=== PATIENT | male | born 1980 | race Caucasian/White ===

== ENCOUNTER 2018-03-27 14:42 | Emergency (ER) | payer BC ==
[2018-03-27] MEDS ORDERED: MORPHINE SULFATE 4 MG/ML SYRINGE IVP PRN ×2 (15:02→17:20)
--- NOTE | 2018-03-27 15:09 | ED ---
General Adult HPI - General Chief complaint: Back Pain/Injury Stated complaint: Urogenital Source: patient Mode of arrival: ambulatory Limitations: no limitations - History of Present Illness Initial comments: Dictation was produced using OmPrompt dictation software. please excuse any grammatical, word or spelling errors. Chief Complaint: 29-year-old male with past medical history of hypertension, bipolar disease presents with testicular pain and back pain. History of Present Illness: Patient is a 37-year-old male presents with testicular pain and back pain. Patient states he initially had back pain that started 2 days ago. He was at work when he was lifting a drum when he came immediately felt pain to his lower back. He saw occupational health told him he had sciatica. He was hydrated and discharged. Patient was without insurance however he just regained it. He attempted to follow-up with his primary care physician however his PCP does not take patient's insurance. Since yesterday patient has been having some testicular pain as well. He states he feels as though his pain is towards his left posterior testicle. Patient is sexually active. Denies any urinary symptoms. No history of kidney stones. Patient is still passing gas however he has not had a bowel movement in 2-3 days. The ROS documented in this emergency department record has been reviewed and confirmed by me. Those systems with pertinent positive or negative responses have been documented in the HPI. All other systems are other negative and/or noncontributory. - Related Data Previous Rx's Medication Instructions Recorded Hydrocodone/Acetaminophen [[place] 1 tab PO Q6HR PRN 3 Days #12 tab 03/27/18 5-325] [place] Carbonate [[place] 600 mg PO DAILY #30 tablet.er 03/27/18 Carbonate ER] Polyethylene Glycol 3350 [Miralax] 17 gm PO DAILY 3 Days #3 packet 03/27/18 Allergies Allergy/AdvReac Type Severity Reaction Status Date / Time No Known Allergies Allergy Verified 03/27/18 14:47 Review of Systems ROS Statement: Those systems with pertinent positive or pertinent negative responses have been documented in the HPI. ROS Other: All systems not noted in ROS Statement are negative. Past Medical History Past Medical History: Hypertension History of Any Multi-Drug Resistant Organisms: None Reported Past Surgical History: No Surgical Hx Reported Past Psychological History: Bipolar, PTSD Smoking Status: Current every day smoker Past Alcohol Use History: None Reported Past Drug Use History: None Reported General Exam - General Exam Comments Initial Comments: PHYSICAL EXAM: General Impression: Alert and oriented x3, not in acute distress HEENT: Normocephalic atraumatic, extra-ocular movements intact, pupils equal and reactive to light bilaterally, mucous membranes moist. Cardiovascular: Heart regular rate and rhythm, S1&S2 audible, no murmurs, rubs or gallops Chest: Lungs clear to auscultation bilaterally, no rhonchi, no wheeze, no rales Abdomen: Bowel sounds present, abdomen soft, non-tender, non-distended, no organomegaly Musculoskeletal: Pulses present and equal in all extremities, no peripheral edema Motor: Power 5/5 bilaterally, no focal deficits noted Neurological: CN II-XII grossly intact, no focal motor or sensory deficits noted Skin: Intact with no visualized rashes Psych: Normal affect and mood : Pain in the left testicle, no inguinal hernias palpated with Valsalva Limitations: no limitations Course Vital Signs 03/27/18 03/27/18 03/27/18 14:44 15:31 16:28 Temperature 98.8 F 98.7 F Pulse Rate 91 83 83 Respiratory 18 18 18 Rate Blood Pressure 146/88 124/79 119/93 O2 Sat by Pulse 99 97 97 Oximetry 03/27/18 17:56 Temperature 98.1 F Pulse Rate 78 Respiratory 18 Rate Blood Pressure 123/76 O2 Sat by Pulse 97 Oximetry Medical Decision Making - Medical Decision Making ED course: 79-year-old male presents with chief complaint of back pain and left testicular pain. Vital signs upon arrival are within acceptable limits. At this point I doubt that his back pain and testicular pain are related given that his pain started with lifting an object. Believe his back pain is secondary to sciatica. Patient does have tenderness to his left testicle. He does not have urinary symptoms however is sexually active. No palpable inguinal hernias. Patient is not obstipated and still passing gas however has not had a bowel movement. Laboratory evaluation obtained. CBC unremarkable, metabolic panel is unremarkable. Urinalysis is negative. Ultrasound of the scrotum showed small varicocele of the left testicle. Abdominal x-ray showed nonobstructive bowel gas pattern. Computed tomography scan of the abdomen and pelvis was obtained given that patient lack of bowel movements. There was concern of some hernia or alternate cause of varicocele. CT showed findings to suggest fecal stasis. Patient does not have a PCP. He requests refill for his lithium. Patient given some pain medication. He is also given some MiraLAX to take it. Patient told to avoid narcotics because it may worsen his constipation. Patient told to follow up with urologist for varicocele. Patient understandable agreeable to plan. - Lab Data Result diagrams: 03/27/18 15:18 03/27/18 15:18 Lab Results 03/27/18 03/27/18 03/27/18 Range/Units 15:18 15:18 16:46 WBC 9.5 (3.8-10.6) k/uL RBC 4.68 (4.30-5.90) m/uL Hgb 14.7 (13.0-17.5) gm/dL Hct 43.4 (39.0-53.0) % MCV 92.8 (80.0-100.0) fL MCH 31.3 (25.0-35.0) pg MCHC 33.7 (31.0-37.0) g/dL RDW 13.3 (11.5-15.5) % Plt Count 227 (150-450) k/uL Neutrophils % 61 % Lymphocytes % 30 % Monocytes % 5 % Eosinophils % 2 % Basophils % 0 % Neutrophils # 5.9 (1.3-7.7) k/uL Lymphocytes # 2.8 (1.0-4.8) k/uL Monocytes # 0.5 (0-1.0) k/uL Eosinophils # 0.2 (0-0.7) k/uL Basophils # 0.0 (0-0.2) k/uL Sodium 140 (137-145) mmol/L Potassium 4.2 (3.5-5.1) mmol/L Chloride 105 (98-107) mmol/L Carbon Dioxide 27 (22-30) mmol/L Anion Gap 8 mmol/L BUN 11 (9-20) mg/dL Creatinine 0.76 (0.66-1.25) mg/dL Est GFR (CKD-EPI)AfAm >90 (>60 ml/min/1.73 sqM) Est GFR (CKD-EPI)NonAf >90 (>60 ml/min/1.73 sqM) Glucose 105 H (74-99) mg/dL Calcium 9.0 (8.4-10.2) mg/dL Total Bilirubin 0.6 (0.2-1.3) mg/dL AST 20 (17-59) U/L ALT 18 L (21-72) U/L Alkaline Phosphatase 58 (38-126) U/L Total Protein 7.3 (6.3-8.2) g/dL Albumin 4.3 (3.5-5.0) g/dL Lipase 65 (23-300) U/L Urine Color Yellow Urine Appearance Clear (Clear) Urine pH 6.0 (5.0-8.0) Ur Specific [place] 1.024 (1.001-1.035) Urine Protein Trace H (Negative) Urine Glucose (UA) Negative (Negative) Urine Ketones Trace H (Negative) Urine Blood Negative (Negative) Urine Nitrite Negative (Negative) Urine Bilirubin Negative (Negative) Urine Urobilinogen <2.0 (<2.0) mg/dL Ur Leukocyte Esterase Negative (Negative) Disposition Clinical Impression: Constipation Disposition: HOME SELF-CARE Instructions: Constipation (ED) Prescriptions: Hydrocodone/Acetaminophen [[place] 5-325] 1 tab PO Q6HR PRN 3 Days #12 tab PRN Reason: Pain [place] Carbonate [[place] Carbonate ER] 600 mg PO DAILY #30 tablet.er Polyethylene Glycol 3350 [Miralax] 17 gm PO DAILY 3 Days #3 packet Is patient prescribed a controlled substance at d/c from ED?: Yes If prescribed controlled substance>3 days was MAPS reviewed?: Prescribed <3 Days Referrals: Joyce Stephen MD [REFERRING] - 1-2 days None,Stated [Primary Care Provider] - 1-2 days Jorge Alberto Schrader MD [STAFF PHYSICIAN] - 1-2 days Time of Disposition: 18:39
[2018-03-27 15:31] LABS: Basophils % (A) 0 %; Eosinophils # (A) 0.2 k/uL (0-0.7); Eosinophils % (A) 2 %; HCT 43.4 % (39.0-53.0); HGB 14.7 gm/dL (13.0-17.5); Lymphocytes # (A) 2.8 k/uL (1.0-4.8); Lymphocytes % (A) 30 %; MCH 31.3 pg (25.0-35.0); MCHC 33.7 g/dL (31.0-37.0); MCV 92.8 fL (80.0-100.0); Mean Platelet Volume 6.8; Monocytes # (A) 0.5 k/uL (0-1.0); Monocytes % (A) 5 %; Neutrophils # (A) 5.9 k/uL (1.3-7.7); Neutrophils % (A) 61 %; Platelet Count 227 k/uL (150-450); RBC 4.68 m/uL (4.30-5.90); RDW 13.3 % (11.5-15.5); WBC 9.5 k/uL (3.8-10.6)
[2018-03-27 15:46] LABS: ALT 18 U/L (21-72); AST 20 U/L (17-59); Albumin 4.3 g/dL (3.5-5.0); Alkaline Phosphatase 58 U/L (38-126); Anion Gap 8 mmol/L; Blood Urea Nitrogen 11 mg/dL (9-20); Carbon Dioxide 27 mmol/L (22-30); Chloride 105 mmol/L (98-107); Glucose 105 mg/dL (74-99); Lipase 65 U/L (23-300); Potassium 4.2 mmol/L (3.5-5.1); Sodium 140 mmol/L (137-145); Total Bilirubin 0.6 mg/dL (0.2-1.3); Total Protein 7.3 g/dL (6.3-8.2)
--- NOTE | 2018-03-27 16:32 | US ---
EXAMINATION TYPE: US scrotum with doppler. Grayscale and color Doppler Duplex imaging performed of meggan gaston scrotum. DATE OF EXAM: 03/27/2018 COMPARISON: NONE CLINICAL HISTORY: Pain. Pain behind left testicle EXAM MEASUREMENTS: TESTICLES: Right Testicle: 3.8 x 2.1 x 3.1 cm Left Testicle: 3.9 x 1.9 x 3.2 cm EPIDIDYMIS HEAD: Right Epididymis: 0.9 x 0.7 cm Left Epididymis: 1.0 x 0.8 cm Doppler performed to assess for testicular vascularity; bilateral color flow and waveforms are seen. Presence of hydroceles: none appreciated Presence of varicoceles: Some dilation of serpiginous structures noted in the right peritesticular l ocation as compared to left. No definite abnormality noted. Testicular echotexture is homogenous and symmetric IMPRESSION: Small varicocele suspected.
--- NOTE | 2018-03-27 16:34 | XR ---
Abdomen HISTORY: Pain Frontal view of the abdomen on 2 images Lung bases are clear. There is no evident bowel obstruction or pneumoperitoneum. Slight spinal curvat ure is noted. Bone mineralization is remarkable for some sclerosis and possible lucency within the fe moral heads. No pathologic ossification. IMPRESSION: Nonobstructive bowel gas pattern. Question osteonecrosis of the hips.
[2018-03-27 17:06] LABS: Appearance,Urine Clear (Clear); Bilirubin,Urine Negative (Negative); Blood,Urine Negative (Negative); Color,Urine Yellow; Glucose,Urine (UA) Negative (Negative); Ketones,Urine Trace (Negative); Leukocyte Esterase,Urine Negative (Negative); Nitrite,Urine Negative (Negative); Protein,Urine Trace (Negative); Specific Gravity,Urine 1.024 (1.001-1.035); Urobilinogen,Urine <2.0 mg/dL (<2.0)
--- NOTE | 2018-03-27 18:25 | CT ---
EXAMINATION TYPE: CT abdomen pelvis w con DATE OF EXAM: 03/27/2018 COMPARISON: Abdomen same date HISTORY: Left testicular pain. CT DLP: 1233.8 mGycm Automated exposure control for dose reduction was used. TECHNIQUE: Helical acquisition of images from the lung bases through the pelvis have been completed. CONTRAST: Performed without Oral Contrast and with IV Contrast, patient injected with 100 mL of Isovue 300. FINDINGS: Small umbilical hernia contains fat. LUNG BASES: No significant abnormality is appreciated. AORTA: No significant abnormality is appreciated. LIVER/GB: Liver shows low attenuation and is enlarged, correlate for fecal stasis, gallbladder is nor mal. PANCREAS: No significant abnormality is seen. SPLEEN: No significant abnormality is seen. ADRENALS: No significant abnormality is seen. KIDNEYS: No significant abnormality is seen. REPRODUCTIVE ORGANS: There is a calcification seen within the prostate BOWEL: No significant abnormality is seen. Appendix is normal. There is retained fecal debris throug hout the distribution of the colon. FREE AIR: No Free Air visible. ASCITES: None visible. PELVIC ADENOPATHY: None visualized. RETROPERITONEAL ADENOPATHY: No Retroperitoneal Adenopathy visible. URINARY BLADDER: No significant abnormality is seen. OSSEOUS STRUCTURES: No significant abnormality is seen. IMPRESSION: CORRELATE FOR FECAL STASIS. Additional findings above.
[2018-03-27 18:54] VITALS: BP 111/75; PULSE 75; RESP 16; TEMP 98.3
== END 2018-03-27 18:54 | disposition home or self-care (01) ==
LOC: EC 14:42
DX: K59.00 Constipation, unspecified (principal); I86.1 Scrotal varices; F17.200 Nicotine dependence, unspecified, uncomplicated
CPT/HCPCS: 99284; 96374; 96376; 36415; 80053; 83690; 85025; 81003; 74018; 93975; 76870; 74177; J2270; Q9967

== ENCOUNTER 2019-04-14 08:08 | Emergency (ER) | payer BC ==
[2019-04-14] MEDS ORDERED: SODIUM CHLORIDE 0.9% 1,000 ML IV STA ×2 (08:16)
[2019-04-14] MEDS ORDERED: LORazepam 2 MG/ML INJ IV STA (08:30)
--- NOTE | 2019-04-14 08:44 | ED ---
General Adult HPI - General Chief complaint: Chest Pain Stated complaint: Chest pain, Anxiety Time Seen by Provider: 04/14/19 08:15 Source: patient, RN notes reviewed, old records reviewed Mode of arrival: ambulatory Limitations: no limitations - History of Present Illness Initial comments: 38 year old male presents with onset of anxiety while driving today, and complains of chest pain. He called is significant other whom picked him up and drove to ED. He reports that he suffers from anxiety and takes buspar. He was preiviously on ativan. Patient reports that he started to have anxiety which then lead to chest tightness and complained of shortness of breath. Denies previous cardiac history. - Related Data Home Medications Medication Instructions Recorded Confirmed Gabapentin 800 mg PO TID 04/14/19 04/14/19 buPROPion XL [Wellbutrin Xl] 300 mg PO DAILY 04/14/19 04/14/19 Previous Rx's Medication Instructions Recorded LORazepam [Ativan] 0.5 mg PO BID 3 Days #6 tab 04/14/19 Allergies Allergy/AdvReac Type Severity Reaction Status Date / Time No Known Allergies Allergy Verified 11/24/18 14:30 Review of Systems ROS Statement: Those systems with pertinent positive or pertinent negative responses have been documented in the HPI. ROS Other: All systems not noted in ROS Statement are negative. Past Medical History Past Medical History: Hypertension History of Any Multi-Drug Resistant Organisms: None Reported Past Surgical History: No Surgical Hx Reported Past Psychological History: Bipolar, PTSD Smoking Status: Former smoker Past Alcohol Use History: None Reported Past Drug Use History: Marijuana General Exam - General Exam Comments Initial Comments: Anxious and shaking 38 year old male, Limitations: no limitations General appearance: alert, in no apparent distress Head exam: Present: atraumatic, normocephalic, normal inspection Eye exam: Present: normal appearance, PERRL, EOMI. Absent: scleral icterus, conjunctival injection, periorbital swelling ENT exam: Present: normal exam, mucous membranes moist Neck exam: Present: normal inspection. Absent: tenderness, meningismus, lymphadenopathy Respiratory exam: Present: normal lung sounds bilaterally. Absent: respiratory distress, wheezes, rales, rhonchi, stridor Cardiovascular Exam: Present: regular rate, normal rhythm, normal heart sounds. Absent: systolic murmur, diastolic murmur, rubs, gallop, clicks GI/Abdominal exam: Present: soft, normal bowel sounds. Absent: distended, tenderness, guarding, rebound, rigid Back exam: Present: normal inspection Neurological exam: Present: alert, oriented X3, CN II-XII intact Psychiatric exam: Present: normal mood, anxious. Absent: normal affect Skin exam: Present: warm Course Vital Signs 04/14/19 04/14/19 08:08 11:36 Temperature 98.5 F 98.7 F Pulse Rate 98 74 Respiratory 19 18 Rate Blood Pressure 179/94 133/94 O2 Sat by Pulse 96 95 Oximetry Medical Decision Making - Medical Decision Making 38 year old male presents with anxiety induced chest pain. Given IV fluids,ativan and labs obtained. On reevaluation he denies chest pain, and is re sting in bed. He reports that ativan helped with his anxiety. Patient labs incluidng troponin and ddimer are negative EKG is normal. Discussed treatment for anxiety should be followed up with PCP and psychiatry. Will DC with short Rx of ativan. - Lab Data Result diagrams: 04/14/19 09:08 04/14/19 09:08 Lab Results 04/14/19 04/14/19 04/14/19 Range/Units 09:08 09:08 09:08 WBC 6.1 (3.8-10.6) k/uL RBC 4.35 (4.30-5.90) m/uL Hgb 13.9 (13.0-17.5) gm/dL Hct 39.9 (39.0-53.0) % MCV 91.7 (80.0-100.0) fL MCH 31.9 (25.0-35.0) pg MCHC 34.8 (31.0-37.0) g/dL RDW 12.7 (11.5-15.5) % Plt Count 246 (150-450) k/uL Neutrophils % 70 % Lymphocytes % 23 % Monocytes % 5 % Eosinophils % 1 % Basophils % 0 % Neutrophils # 4.2 (1.3-7.7) k/uL Lymphocytes # 1.4 (1.0-4.8) k/uL Monocytes # 0.3 (0-1.0) k/uL Eosinophils # 0.0 (0-0.7) k/uL Basophils # 0.0 (0-0.2) k/uL PT 9.9 (9.0-12.0) sec INR 0.9 (<1.2) APTT 24.6 (22.0-30.0) sec D-Dimer <0.17 (<0.60) mg/L FEU Sodium 140 (137-145) mmol/L Potassium 4.5 (3.5-5.1) mmol/L Chloride 103 (98-107) mmol/L Carbon Dioxide 28 (22-30) mmol/L Anion Gap 9 mmol/L BUN 14 (9-20) mg/dL Creatinine 0.74 (0.66-1.25) mg/dL Est GFR (CKD-EPI)AfAm >90 (>60 ml/min/1.73 sqM) Est GFR (CKD-EPI)NonAf >90 (>60 ml/min/1.73 sqM) Glucose 132 H (74-99) mg/dL Calcium 8.7 (8.4-10.2) mg/dL Magnesium 1.7 (1.6-2.3) mg/dL Total Bilirubin 0.4 (0.2-1.3) mg/dL AST 20 (17-59) U/L ALT 19 L (21-72) U/L Alkaline Phosphatase 63 (38-126) U/L Troponin I (0.000-0.034) ng/mL Total Protein 7.1 (6.3-8.2) g/dL Albumin 4.3 (3.5-5.0) g/dL Amylase 51 (30-110) U/L Lipase 61 (23-300) U/L 04/14/19 Range/Units 09:08 WBC (3.8-10.6) k/uL RBC (4.30-5.90) m/uL Hgb (13.0-17.5) gm/dL Hct (39.0-53.0) % MCV (80.0-100.0) fL MCH (25.0-35.0) pg MCHC (31.0-37.0) g/dL RDW (11.5-15.5) % Plt Count (150-450) k/uL Neutrophils % % Lymphocytes % % Monocytes % % Eosinophils % % Basophils % % Neutrophils # (1.3-7.7) k/uL Lymphocytes # (1.0-4.8) k/uL Monocytes # (0-1.0) k/uL Eosinophils # (0-0.7) k/uL Basophils # (0-0.2) k/uL PT (9.0-12.0) sec INR (<1.2) APTT (22.0-30.0) sec D-Dimer (<0.60) mg/L FEU Sodium (137-145) mmol/L Potassium (3.5-5.1) mmol/L Chloride (98-107) mmol/L Carbon Dioxide (22-30) mmol/L Anion Gap mmol/L BUN (9-20) mg/dL Creatinine (0.66-1.25) mg/dL Est GFR (CKD-EPI)AfAm (>60 ml/min/1.73 sqM) Est GFR (CKD-EPI)NonAf (>60 ml/min/1.73 sqM) Glucose (74-99) mg/dL Calcium (8.4-10.2) mg/dL Magnesium (1.6-2.3) mg/dL Total Bilirubin (0.2-1.3) mg/dL AST (17-59) U/L ALT (21-72) U/L Alkaline Phosphatase (38-126) U/L Troponin I <0.012 (0.000-0.034) ng/mL Total Protein (6.3-8.2) g/dL Albumin (3.5-5.0) g/dL Amylase (30-110) U/L Lipase (23-300) U/L 04/14/19 08:44 EKG shows sinus rhythm, nonspecific intraventricular conduction delay. Prolonged QT. Abnormal EKG noted. Ventricular rate of 89 bpm. Verbal is undertaken. She yazidism 118 ms. QT QTc is 402/489 ms. - Radiology Data Radiology results: report reviewed CXR is negative for acute process. Disposition Clinical Impression: Anxiety, Atypical chest pain Disposition: HOME SELF-CARE Condition: Good Instructions (If sedation given, give patient instructions): Chest Pain (ED) Additional Instructions: Please use medication as discussed. Please follow up with family doctor if symptoms have not improved over the next two days. Also recommended following up with ophthalmology. Please return to the emergency room if your symptoms increase or worsen or for any other concerns. Prescriptions: LORazepam [Ativan] 0.5 mg PO BID 3 Days #6 tab Is patient prescribed a controlled substance at d/c from ED?: No Referrals: Chavo Morales MD [Primary Care Provider] - 1-2 days Time of Disposition: 11:16
--- NOTE | 2019-04-14 09:28 | XR ---
EXAMINATION TYPE: XR chest 2V DATE OF EXAM: 04/14/2019 COMPARISON: None HISTORY: 38-year-old male with chest pain and shortness of breath TECHNIQUE: AP and lateral views FINDINGS: The cardiomediastinal silhouette, aorta, and pulmonary vasculature are within normal limits. Lungs an d pleural spaces are clear. IMPRESSION: No acute cardiopulmonary process.
[2019-04-14 09:39] LABS: Basophils % (A) 0 %; Eosinophils % (A) 1 %; HCT 39.9 % (39.0-53.0); HGB 13.9 gm/dL (13.0-17.5); Lymphocytes # (A) 1.4 k/uL (1.0-4.8); Lymphocytes % (A) 23 %; MCH 31.9 pg (25.0-35.0); MCHC 34.8 g/dL (31.0-37.0); MCV 91.7 fL (80.0-100.0); Mean Platelet Volume 5.9; Monocytes # (A) 0.3 k/uL (0-1.0); Monocytes % (A) 5 %; Neutrophils # (A) 4.2 k/uL (1.3-7.7); Neutrophils % (A) 70 %; Platelet Count 246 k/uL (150-450); RBC 4.35 m/uL (4.30-5.90); RDW 12.7 % (11.5-15.5); WBC 6.1 k/uL (3.8-10.6)
[2019-04-14 09:47] LABS: ALT 19 U/L (21-72); AST 20 U/L (17-59); African American GFR (CKD) >90 (>60 ml/min/1.73 sqM); Albumin 4.3 g/dL (3.5-5.0); Alkaline Phosphatase 63 U/L (38-126); Amylase 51 U/L (30-110); Anion Gap 9 mmol/L; Blood Urea Nitrogen 14 mg/dL (9-20); Calcium 8.7 mg/dL (8.4-10.2); Carbon Dioxide 28 mmol/L (22-30); Chloride 103 mmol/L (98-107); Glucose 132 mg/dL (74-99); Magnesium 1.7 mg/dL (1.6-2.3); Non-African American GFR(CKD) >90 (>60 ml/min/1.73 sqM); Potassium 4.5 mmol/L (3.5-5.1); Sodium 140 mmol/L (137-145); Total Bilirubin 0.4 mg/dL (0.2-1.3); Total Protein 7.1 g/dL (6.3-8.2)
[2019-04-14 09:54] LABS: INR 0.9 (<1.2); Partial Thromboplastin Time 24.6 sec (22.0-30.0); Prothrombin Time 9.9 sec (9.0-12.0)
[2019-04-14 10:10] LABS: D-Dimer <0.17 mg/L FEU (<0.60)
[2019-04-14 11:38] VITALS: BP 133/94; PULSE 74; RESP 18; TEMP 98.7
== END 2019-04-14 11:36 | disposition home or self-care (01) ==
LOC: EC 08:08
DX: F41.9 Anxiety disorder, unspecified (principal); F31.9 Bipolar disorder, unspecified; Z87.891 Personal history of nicotine dependence; Z79.899 Other long term (current) drug therapy
CPT/HCPCS: 36415; 93005; 85379; 80053; 82150; 83690; 83735; 84484; 85025; 85610; 85730; 71046; 99285; 96374; 96361 ×2; J2060

== ENCOUNTER 2019-09-24 23:13 | Inpatient (IN) | payer BC ==
[2019-09-24] MEDS ORDERED: LORazepam 2 MG/ML INJ IV STA (23:34)
[2019-09-24] MEDS ORDERED: SODIUM CHLORIDE 0.9% 500 ML 500 ML IV STA (23:34)
[2019-09-24] MEDS ORDERED: LORazepam 2 MG/ML INJ IV PRN ×2 (23:35)
[2019-09-24] MEDS ORDERED: THIAMINE 100 MG/ML 2 ML VIAL IM STA (23:35)
--- NOTE | 2019-09-24 23:39 | ED ---
General Adult HPI - General Chief complaint: Psychiatric Symptoms Stated complaint: Petition Time Seen by Provider: 09/24/19 23:26 Source: patient, police Mode of arrival: ambulatory Limitations: no limitations - History of Present Illness Initial comments: This patient is a 38-year-old man who presents with the complaint that he believes she is starting to go into alcohol withdrawal. The patient states that he has previously had this requiring "being put into a coma." Patient states she has had severe withdrawal including seizures previously when he stopped drinking. The patient had been alcohol free for approximately 2 years until starting about 3 weeks ago he began drinking every day because she was isolated home and also had significant stress as his partner left him and took his children. The patient states she has been drinking probably 8 of the 22 ounce beers per day as well as a bottle of wine. Patient denies drug use. -: hour(s) Improves with: none Worsens with: none Associated Symptoms: denies other symptoms Treatments Prior to Arrival: none - Related Data Home Medications Medication Instructions Recorded Confirmed Gabapentin 800 mg PO TID 04/14/19 04/14/19 buPROPion XL [Wellbutrin Xl] 300 mg PO DAILY 04/14/19 04/14/19 Previous Rx's Medication Instructions Recorded LORazepam [Ativan] 0.5 mg PO BID 3 Days #6 tab 04/14/19 Allergies Allergy/AdvReac Type Severity Reaction Status Date / Time No Known Allergies Allergy Verified 11/24/18 14:30 Review of Systems ROS Statement: Those systems with pertinent positive or pertinent negative responses have been documented in the HPI. ROS Other: All systems not noted in ROS Statement are negative. Constitutional: Denies: fever, weakness Respiratory: Denies: cough, dyspnea Cardiovascular: Denies: chest pain, palpitations Gastrointestinal: Denies: abdominal pain, vomiting, diarrhea Musculoskeletal: Denies: back pain Skin: Denies: rash Neurological: Denies: headache, weakness Psychiatric: Reports: anxiety, depression, suicidal thoughts. Denies: auditory hallucinations, visual hallucinations, homicidal thoughts Past Medical History Past Medical History: Hypertension History of Any Multi-Drug Resistant Organisms: None Reported Past Surgical History: No Surgical Hx Reported Past Psychological History: Bipolar, PTSD Smoking Status: Current some day smoker Past Alcohol Use History: Heavy Past Drug Use History: Marijuana General Exam Limitations: no limitations General appearance: alert, anxious Head exam: Present: atraumatic, normocephalic Eye exam: Present: normal appearance, PERRL, EOMI. Absent: scleral icterus, conjunctival injection ENT exam: Present: normal oropharynx Neck exam: Present: full ROM Respiratory exam: Present: normal lung sounds bilaterally. Absent: respiratory distress, wheezes, rales, rhonchi, stridor Cardiovascular Exam: Present: normal rhythm, tachycardia, normal heart sounds. Absent: systolic murmur, diastolic murmur, rubs, gallop GI/Abdominal exam: Present: soft. Absent: distended, tenderness, guarding, rebound, rigid, mass Extremities exam: Present: normal inspection, normal capillary refill. Absent: pedal edema, calf tenderness Back exam: Present: normal inspection. Absent: CVA tenderness (R), CVA tenderness (L) Neurological exam: Present: alert Psychiatric exam: Present: depressed, agitated, suicidal ideation. Absent: normal affect, normal mood, flat affect, homicidal ideation Skin exam: Present: warm, dry, intact, normal color. Absent: rash Course Vital Signs 09/24/19 23:17 Temperature 98.9 F Pulse Rate 113 H Respiratory 18 Rate Blood Pressure 169/84 O2 Sat by Pulse 97 Oximetry Disposition Referrals: Chavo Morales MD [Primary Care Provider] - 1-2 days
[2019-09-25 00:03] LABS: Amphetamine Screen,Urine Not Detected (NotDetected); Barbiturate Screen,Urine Not Detected (NotDetected); Benzodiazepines Screen,Urine Detected (NotDetected); Cocaine Screen,Urine Not Detected (NotDetected); Methadone Screen, Urine Not Detected (NotDetected); Opiate Screen,Urine Not Detected (NotDetected); Oxycodone Screen, Urine Not Detected (NotDetected); Phencyclidine Screen,Urine Not Detected (NotDetected); Tricyclic Antidepressant,Urine Not Detected (NotDetected); Urn Cannabinoid Scrn Detected (NotDetected)
[2019-09-25] MEDS ORDERED: LORazepam 2 MG/ML INJ IV STA (00:23)
[2019-09-25] MEDS ORDERED: ONDANSETRON 4 MG/2 ML VIAL IVP STA ×3 (00:23→09:08)
[2019-09-25 01:32] LABS: Basophils % (A) 0 %; Eosinophils # (A) 0.1 k/uL (0-0.7); Eosinophils % (A) 1 %; HGB 14.5 gm/dL (13.0-17.5); Lymphocytes # (A) 3.8 k/uL (1.0-4.8); Lymphocytes % (A) 40 %; MCH 32.4 pg (25.0-35.0); MCHC 33.7 g/dL (31.0-37.0); Mean Platelet Volume 6.8; Monocytes # (A) 0.4 k/uL (0-1.0); Monocytes % (A) 5 %; Neutrophils # (A) 4.9 k/uL (1.3-7.7); Neutrophils % (A) 52 %; Platelet Count 255 k/uL (150-450); RBC 4.48 m/uL (4.30-5.90); RDW 14.4 % (11.5-15.5); WBC 9.5 k/uL (3.8-10.6)
[2019-09-25 01:37] LABS: ALT 17 U/L (4-49); AST 32 U/L (17-59); African American GFR (CKD) >90 (>60 ml/min/1.73 sqM); Albumin 4.5 g/dL (3.5-5.0); Alkaline Phosphatase 80 U/L (38-126); Anion Gap 8 mmol/L; Blood Urea Nitrogen 9 mg/dL (9-20); Calcium 8.5 mg/dL (8.4-10.2); Carbon Dioxide 29 mmol/L (22-30); Chloride 104 mmol/L (98-107); Glucose 101 mg/dL (74-99); Non-African American GFR(CKD) >90 (>60 ml/min/1.73 sqM); Potassium 4.7 mmol/L (3.5-5.1); Sodium 141 mmol/L (137-145); Total Bilirubin 0.5 mg/dL (0.2-1.3); Total Protein 7.3 g/dL (6.3-8.2)
[2019-09-25 01:53] LABS: Alcohol 235 mg/dL
[2019-09-25] MEDS: THIAMINE 100 MG TAB PO SCH ×2 (09:11→15:07)
[2019-09-25] MEDS: LORazepam 2 MG/ML INJ IV PRN ×3 (09:14→11:26)
[2019-09-25] MEDS ORDERED: SODIUM CHLORIDE 0.9% 500 ML 500 ML IV STA (09:25)
[2019-09-25] MEDS ORDERED: MAG HYDROX/AL HYDROX/SIMETH 30 ML CUP PO PRN (11:08)
[2019-09-25] MEDS ORDERED: MAGNESIUM HYDROXIDE 2,400 MG/10 ML CUP PO PRN (11:08)
[2019-09-25] MEDS ORDERED: ZIPRASIDONE 20 MG VIAL IM PRN (11:08)
[2019-09-25] MEDS ORDERED: LORazepam 1 MG TAB PO PRN (11:08)
[2019-09-25] MEDS: NICOTINE 14MG/24HR PATCH TRANSDERM SCH (13:01)
[2019-09-25] MEDS: LORazepam 1 MG TAB PO PRN ×3 (15:07→22:09)
[2019-09-25] MEDS: ACETAMINOPHEN TAB 325 MG TAB PO PRN ×2 (15:07→19:02)
--- NOTE | 2019-09-25 18:30 | P.HP ---
Psychiatric H&P - . H&P Date: 09/25/19 History & Physical: Allergies Allergy/AdvReac Type Severity Reaction Status Date / Time No Known Allergies Allergy Verified 09/25/19 12:29 Vital Signs Temp 99.5 F 09/25/19 14:59 Pulse 101 H 09/25/19 14:59 Resp 18 09/25/19 14:59 BP 138/91 09/25/19 14:59 Pulse Ox 97 09/25/19 14:59 Intake & Output 09/24/19 09/25/19 09/25/19 18:59 06:59 18:59 Weight 90.718 kg 90.718 kg Laboratory Last Values WBC 9.5 k/uL (3.8-10.6) 09/25/19 00:58 RBC 4.48 m/uL (4.30-5.90) 09/25/19 00:58 Hgb 14.5 gm/dL (13.0-17.5) 09/25/19 00:58 Hct 43.0 % (39.0-53.0) 09/25/19 00:58 MCV 96.0 fL (80.0-100.0) 09/25/19 00:58 MCH 32.4 pg (25.0-35.0) 09/25/19 00:58 MCHC 33.7 g/dL (31.0-37.0) 09/25/19 00:58 RDW 14.4 % (11.5-15.5) 09/25/19 00:58 Plt Count 255 k/uL (150-450) 09/25/19 00:58 Neutrophils % 52 % 09/25/19 00:58 Lymphocytes % 40 % 09/25/19 00:58 Monocytes % 5 % 09/25/19 00:58 Eosinophils % 1 % 09/25/19 00:58 Basophils % 0 % 09/25/19 00:58 Neutrophils # 4.9 k/uL (1.3-7.7) 09/25/19 00:58 Lymphocytes # 3.8 k/uL (1.0-4.8) 09/25/19 00:58 Monocytes # 0.4 k/uL (0-1.0) 09/25/19 00:58 Eosinophils # 0.1 k/uL (0-0.7) 09/25/19 00:58 Basophils # 0.0 k/uL (0-0.2) 09/25/19 00:58 Sodium 141 mmol/L (137-145) 09/25/19 00:58 Potassium 4.7 mmol/L (3.5-5.1) 09/25/19 00:58 Chloride 104 mmol/L (98-107) 09/25/19 00:58 Carbon Dioxide 29 mmol/L (22-30) 09/25/19 00:58 Anion Gap 8 mmol/L 09/25/19 00:58 BUN 9 mg/dL (9-20) 09/25/19 00:58 Creatinine 0.70 mg/dL (0.66-1.25) 09/25/19 00:58 Est GFR (CKD-EPI)AfAm >90 (>60 ml/min/1.73 sqM) 09/25/19 00:58 Est GFR (CKD-EPI)NonAf >90 (>60 ml/min/1.73 sqM) 09/25/19 00:58 Glucose 101 mg/dL (74-99) H 09/25/19 00:58 Calcium 8.5 mg/dL (8.4-10.2) 09/25/19 00:58 Magnesium 2.0 mg/dL (1.6-2.3) 09/25/19 00:58 Total Bilirubin 0.5 mg/dL (0.2-1.3) 09/25/19 00:58 AST 32 U/L (17-59) 09/25/19 00:58 ALT 17 U/L (4-49) 09/25/19 00:58 Alkaline Phosphatase 80 U/L (38-126) 09/25/19 00:58 Total Protein 7.3 g/dL (6.3-8.2) 09/25/19 00:58 Albumin 4.5 g/dL (3.5-5.0) 09/25/19 00:58 Urine Opiates Screen Not Detected (NotDetected) 09/24/19 23:46 Ur Oxycodone Screen Not Detected (NotDetected) 09/24/19 23:46 Urine Methadone Screen Not Detected (NotDetected) 09/24/19 23:46 Ur Propoxyphene Screen Not Detected (NotDetected) 09/24/19 23:46 Ur Barbiturates Screen Not Detected (NotDetected) 09/24/19 23:46 U Tricyclic Antidepress Not Detected (NotDetected) 09/24/19 23:46 Ur Phencyclidine Scrn Not Detected (NotDetected) 09/24/19 23:46 Ur Amphetamines Screen Not Detected (NotDetected) 09/24/19 23:46 U Methamphetamines Scrn Not Detected (NotDetected) 09/24/19 23:46 U Benzodiazepines Scrn Detected (NotDetected) H 09/24/19 23:46 Urine Cocaine Screen Not Detected (NotDetected) 09/24/19 23:46 U Marijuana (THC) Screen Detected (NotDetected) H 09/24/19 23:46 Serum Alcohol 235 mg/dL H* 09/25/19 00:58 Coronavirus (PCR) Not Detected (Not Detectd) 09/25/19 16:27 09/25/19 18:20 IDENTIFYING DATA: 38-year-old single male patient HPI: Patient admitted to the inpatient psychiatric unit on an involuntary basis. Petition was done by deputy stating "stated he is depressed over and kids leaving him. States he has been drinking 3 weeks straight. Called [facility] asking for help, stated to Anita that he had a gun and was going to kill himself." Patient reports that his significant other left 3 weeks ago taking the kids and the dogs and went to [place]. He states that the Xanax he was taking wasn't holding his anxiety. He states that he wasn't feeling depression until the virus situation hit. He had been 2 years without depression. His anxiety level also increased with the virus situation and he started having panic attacks. He says he started having thoughts of killing himself related to having drank for so long. He says he has been drinking daily recently, prior he had 2 years sobriety. He says he called and talked to his mom and then he called the hospital and the professor of vegetable science came to him. Says he was talking about using a gun to hurt himself. PAST PSYCHIATRIC HISTORY: He has had history of benefit from lithium in the past. He says he had difficulties getting it refilled anywhere. He did not have lithium toxicity and did not come verbalize any kidney difficulties with the lithium he says his level was always on the low side. He does of a history of some recurrent depression, relays that he becomes manic off of gabapentin and it was started as a mood stabilizer for him. He's been on 800 mg 3 times a day. No history of abusing the gabapentin. He does also give a history of being on Wellbutrin XL 3 or milligrams daily lately as well as Lexapro 20 more grams daily and he did very well on those medications. He also was taking Xanax 4 flor es a day recently. he denies any history of suicide attempts. PMH: No history of seizures, no history of withdrawal seizures. ALLERGIES: No known ALLERGIES MEDICATIONS: I'll when necessary, Maalox when necessary, Ativan when necessary, milk of magnesia when necessary, Habitrol patch, vitamin B1, Geodon when necessary, CHEMICAL DEPENDENCY HISTORY: Patient reports he's been drinking alcohol every da y for the last month. Prior he had 2 years sobriety. Prior to that. Heavy drinking. He does not have any current desire to go back to rehab. He's been to rehab twice. FAMILY PSYCHIATRIC HISTORY: None voiced FAMILY CHEMICAL DEPENDENCY HISTORY: None currently known SOCIAL HISTORY: Currently is living by himself. His girlfriend that "they have been together for 2-1/2 years. He has not had any contact with her. He works for [employer]. He has still been working but is on furlough for about a month. MENTAL STATUS EXAM: He presents as alert and cooperative with the interview. His speech is fluent, not rapid or pressured. Thought processes are organized. He denies any current thoughts of harm to self or others. His describes his mood as anxious. He denies any current hallucinations. He does not show any current agitation. Cognitively appears to be grossly intact. I do not note any significant disorientation or memory disturbance. Insight is adequate, judgment shows evidence of recent impairment. STRENGTHS/WEAKNESSES: Strengths-Seeking treatment; weaknesses -coping skills, substance use INTELLECTUAL FUNCTIONING: Average IMPRESSIONS: Bipolar disorder, depressed; alcohol use disorder; alcohol withdrawal; unspecified anxiety disorder PLAN: Patient is admitted to the inpatient psychiatric unit and [facility] on an involuntary basis. He is agreeable to sign a voluntary form. He will be placed on SP 15 minute precautions. We'll continue to monitor regarding suicidal ideations. Baseline laboratory workup will be done the patient and medical consultation will be ordered. We'll reinitiate Lexapro 20 more grams daily for depression, gabapentin 800 mg 3 times a day which has been helpful for him in terms of mood stabilization as well as anxiety. We'll also add melatonin 3 mg at bedtime to help with insomnia. He is on Ativan currently every 4 hours when necessary to help withdrawal symptoms. We'll continue to monitor for symptoms of withdrawal and monitor his vital signs. We will look into any support systems. Estimated length of stay is 5-7 days. Prognosis is guarded.
[2019-09-25] MEDS ORDERED: MELATONIN 3 MG TABLET PO SCH (21:00)
[2019-09-25] MEDS: GABAPENTIN 400 MG CAP PO SCH (21:49)
[2019-09-26] MEDS: LORazepam 1 MG TAB PO PRN ×3 (01:47→08:54)
[2019-09-26] MEDS: ACETAMINOPHEN TAB 325 MG TAB PO PRN (06:02)
[2019-09-26 06:53] LABS: Basophils % (A) 1 %; Eosinophils # (A) 0.1 k/uL (0-0.7); Eosinophils % (A) 1 %; HCT 43.6 % (39.0-53.0); HGB 14.4 gm/dL (13.0-17.5); Lymphocytes # (A) 2.5 k/uL (1.0-4.8); Lymphocytes % (A) 30 %; MCH 32.2 pg (25.0-35.0); MCHC 33.1 g/dL (31.0-37.0); MCV 97.2 fL (80.0-100.0); Mean Platelet Volume 6.6; Monocytes # (A) 0.4 k/uL (0-1.0); Monocytes % (A) 5 %; Neutrophils % (A) 61 %; Platelet Count 230 k/uL (150-450); RBC 4.49 m/uL (4.30-5.90); RDW 14.3 % (11.5-15.5); WBC 8.2 k/uL (3.8-10.6)
[2019-09-26 06:58] VITALS: RESP 20; TEMP 98.4
[2019-09-26 07:11] LABS: ALT 16 U/L (4-49); AST 30 U/L (17-59); African American GFR (CKD) >90 (>60 ml/min/1.73 sqM); Albumin 4.3 g/dL (3.5-5.0); Alkaline Phosphatase 76 U/L (38-126); Anion Gap 7 mmol/L; Blood Urea Nitrogen 8 mg/dL (9-20); Calcium 8.9 mg/dL (8.4-10.2); Carbon Dioxide 28 mmol/L (22-30); Chloride 99 mmol/L (98-107); Glucose 102 mg/dL (74-99); Non-African American GFR(CKD) >90 (>60 ml/min/1.73 sqM); Potassium 4.1 mmol/L (3.5-5.1); Sodium 134 mmol/L (137-145); Total Protein 7.4 g/dL (6.3-8.2)
[2019-09-26] MEDS: GABAPENTIN 400 MG CAP PO SCH (07:56)
[2019-09-26] MEDS: THIAMINE 100 MG TAB PO SCH (07:56)
[2019-09-26] MEDS: NICOTINE 14MG/24HR PATCH TRANSDERM SCH (07:56)
[2019-09-26] MEDS ORDERED: ESCITALOPRAM 20 MG TAB PO SCH (09:00)
[2019-09-26 09:33] VITALS: BP 169/110; PULSE 106
== END 2019-09-26 10:26 | disposition short-term general hospital (02) | DRG 897 ==
LOC: EC 23:13 → 3MHU 09-25 11:01
PROVIDERS: ADMIT Psychiatry & Neurology Psychiatry; ATTEND Psychiatry & Neurology Psychiatry
DX: F10.239 Alcohol dependence with withdrawal, unspecified (principal); F17.200 Nicotine dependence, unspecified, uncomplicated; F31.9 Bipolar disorder, unspecified; F41.0 Panic disorder [episodic paroxysmal anxiety]; F43.10 Post-traumatic stress disorder, unspecified; G47.00 Insomnia, unspecified; I10 Essential (primary) hypertension; Z79.899 Other long term (current) drug therapy; Z20.828 Contact with and (suspected) exposure to other viral communicable diseases
CPT/HCPCS: 36415; 80053; 80306; 80320; 82075; 83735; 84443; 85025; 87635

== ENCOUNTER 2019-09-26 09:49 | Inpatient (IN) | payer BC ==
[2019-09-26] MEDS ORDERED: LORazepam 2 MG/ML INJ IV PRN ×2 (10:59)
[2019-09-26] MEDS ORDERED: 0.9% NACL WITH KCL 20 MEQ/L 1,000 ML with MVI, ADULT NO.4 WITH VIT K 10 ML, THIAMINE 10... IV SCH ×4 (11:00)
[2019-09-26] MEDS ORDERED: Magnesium Replacement Protocol 1 EACH MISC MISCELLANE PRN (11:12)
[2019-09-26] MEDS ORDERED: Potassium Replacement Protocol 1 EACH MISC MISCELLANE PRN (11:12)
[2019-09-26] MEDS: LORazepam 2 MG/ML INJ IV PRN ×8 (11:14→21:57)
[2019-09-26 11:26] LABS: Basophils % (A) 0 %; Eosinophils # (A) 0.1 k/uL (0-0.7); Eosinophils % (A) 1 %; HCT 44.4 % (39.0-53.0); HGB 15.1 gm/dL (13.0-17.5); Lymphocytes # (A) 1.3 k/uL (1.0-4.8); Lymphocytes % (A) 16 %; MCHC 34.1 g/dL (31.0-37.0); MCV 96.8 fL (80.0-100.0); Mean Platelet Volume 7.7; Monocytes # (A) 0.4 k/uL (0-1.0); Monocytes % (A) 4 %; Neutrophils # (A) 6.7 k/uL (1.3-7.7); Neutrophils % (A) 78 %; Platelet Count 247 k/uL (150-450); RBC 4.59 m/uL (4.30-5.90); RDW 14.2 % (11.5-15.5); WBC 8.7 k/uL (3.8-10.6)
[2019-09-26 12:29] LABS: ALT 16 U/L (4-49); AST 32 U/L (17-59); African American GFR (CKD) >90 (>60 ml/min/1.73 sqM); Albumin 4.6 g/dL (3.5-5.0); Alkaline Phosphatase 89 U/L (38-126); Anion Gap 5 mmol/L; Blood Urea Nitrogen 8 mg/dL (9-20); Calcium 9.2 mg/dL (8.4-10.2); Carbon Dioxide 32 mmol/L (22-30); Chloride 97 mmol/L (98-107); Glucose 106 mg/dL (74-99); Magnesium 1.9 mg/dL (1.6-2.3); Non-African American GFR(CKD) >90 (>60 ml/min/1.73 sqM); Potassium 4.4 mmol/L (3.5-5.1); Sodium 134 mmol/L (137-145); Total Protein 7.6 g/dL (6.3-8.2)
[2019-09-26] MEDS: ONDANSETRON 4 MG/2 ML VIAL IVP PRN (13:01)
[2019-09-26] MEDS: NICOTINE 14MG/24HR PATCH TRANSDERM SCH (13:07)
[2019-09-26] MEDS: PANTOPRAZOLE 40 MG/10 ML VIAL IVP SCH (13:07)
--- NOTE | 2019-09-26 13:26 | P.HPIM ---
History of Present Illness H&P Date: 09/26/19 Chief Complaint: DTs This is a 38-year-old gentleman with history of bipolar, PTSD, nicotine dependence, hypertension, history of severe alcohol withdrawal, and multiple other medical issues presented to the ER with complaints of starting to go into alcohol withdrawal. Reported previously he required an Ativan drip in the ICU for severe withdrawal including seizures. Patient reports he had been alcohol free for 2 years, started drinking approximately 3 weeks ago secondary to significant stress, depression. Reports he is suicidal. Patient was furloughed, had left him, taking the kids and dog. Reports drinking approximately 8 X 22 ounce beers daily and a bottle of wine. Denies any other drug abuse. Initially admitted to mental health unit. In full DTs, admitted to telemetry unit. Placed on CIWA ,attempted 2 doses, score currently up to 26-27. Ordered transferred to ICU, admitting and narcotics investigator notified. On admission toxicology screen reported benzos and THC. Serum alcohol 235. Coronavirus not detected. Afebrile, normal WBC.SBPs 130s to 160s, heart rates 90s to 106. Maintaining O2 sats in the high 90s on room air, respiratory rate 18-20. LFTs within normal limits. Review of Systems ROS Statement: Those systems with pertinent positive or pertinent negative responses have been documented in the HPI. ROS Other: All systems not noted in ROS Statement are negative. Past Medical History Past Medical History: No Reported History, Hypertension Additional Past Medical History / Comment(s): severe alcohol withdrawal. History of Any Multi-Drug Resistant Organisms: None Reported Past Surgical History: No Surgical Hx Reported Past Anesthesia/Blood Transfusion Reactions: No Reported Reaction Past Psychological History: Bipolar, PTSD Smoking Status: Current some day smoker Past Alcohol Use History: Heavy Past Drug Use History: Marijuana Medications and Allergies Home Medications Medication Instructions Recorded Confirmed Type Gabapentin 800 mg PO TID 04/14/19 09/26/19 History LORazepam [Ativan] 0.5 mg PO BID 3 Days #6 tab 04/14/19 09/26/19 Rx buPROPion XL [Wellbutrin Xl] 300 mg PO DAILY 04/14/19 09/26/19 History Allergies Allergy/AdvReac Type Severity Reaction Status Date / Time No Known Allergies Allergy Verified 09/26/19 10:55 Physical Exam Vitals: Vital Signs Temp Pulse Resp BP Pulse Ox 05/04/20 11:04 95 20 09/26/19 10:55 98.4 F 95 20 151/95 97 Intake and Output 09/25/19 09/26/19 09/26/19 22:59 06:59 14:59 Other: Weight 90.718 kg PHYSICAL EXAM: VITAL SIGNS: As above GENERAL: Sitting up in bed, active DTs, HEENT: Conjunctivae normal. eyes normal. Oral mucosa dry. NECK: No JVD. No thyroid enlargement. No LNs CARDIOVASCULAR: S1, S2 regular.. No murmur RESPIRATION: Breath sounds diminished in the bases. No rhonchi or crackles. No bronchial breathing. ABDOMEN: Soft, nontender . No guarding. no masses palpable. No ascites, No hepatosplenomegaly.Bowel sounds heard. LEGS: No edema. no swelling PSYCHIATRY: Alert and oriented X2, depressed appearing NERVOUS SYSTEM: Cranial N 2-12 grossly normal. Moves all 4 limbs. No focal deficits. Strength and sensation grossly intact. Active DTs, tremors Skin: no rash, diaphoretic Lymphatic system. No LN neck axilla. Results CBC & Chem 7: 09/26/19 11:16 09/26/19 11:16 Assessment and Plan Assessment: Acute alcohol intoxication, serum EtOH 235 on admission with active DTs Suicidal Bipolar, depression Anxiety PTSD History of alcohol abuse, severe alcohol withdrawal Hypertension Ongoing nicotine dependence Daily marijuana Obesity, BMI 28.7 Plan: Continue on current medication regime ,monitoring and symptomatic treatment. Patient initially on telemetry unit, transferring to ICU. Increase CIWA protocol, suicide precautions, seizure precautions. IV fluid hydration including banana bag. PPI added for GI prophylaxis. The impression and plan of care has been dictated as directed. : I performed a history and examination of this patient, discussed the same with the dictator. I agree with the dictator's note ,documented as a scribe. Any a dditional findings or plans will be noted.
[2019-09-26] MEDS ORDERED: GABAPENTIN 400 MG CAP PO SCH (16:00)
[2019-09-26] MEDS: GABAPENTIN 400 MG CAP PO SCH ×2 (16:22→21:59)
[2019-09-26] MEDS: ACETAMINOPHEN TAB 325 MG TAB PO PRN ×2 (16:57→21:58)
--- NOTE | 2019-09-26 17:23 | CONS ---
CONSULTATION PULMONARY/CRITICAL CARE CONSULTATION: DATE OF SERVICE: 09/26/2019 REASON FOR CONSULTATION: Alcohol withdrawal syndrome. This patient is a 38-year-old male who has a history of bipolar disorder, PTSD, nicotine dependence, hypertension and severe alcohol abuse without previous episodes of alcohol withdrawal syndrome and alcoholic seizures. He apparently called the hospital asking for help related to his alcohol abuse. He mentioned to the person on the phone that he was talking to that there was a gun in the house, and apparently police arrived at the house, knocked on the door, and brought the patient in to be evaluated. The patient was initially admitted to the psychiatric unit and then transferred over to the general medical floor but then started manifesting signs and symptoms of alcohol withdrawal with tachycardia, hypertension, agitation, confusion, disorientation, etc. They gave Ativan on the floor, but apparently that did not help, and the patient was transferred to ICU for further evaluation and treatment. He has a previous episode a couple of years ago of severe alcohol withdrawal syndrome with alcoholic seizures that required an Ativan drip in the ICU. Apparently he used to drink heavily many years back. He quit drinking 2 years ago but apparently in the last 3 weeks, because his left him and because of other stressors, the patient started drinking again. He was drinking about eight 25-ounce beers a day and then one big jug of wine daily. Apparently his left him, he was furloughed off of his job, and for those reasons he started drinking again. He is also smoking cigarettes and vaping as well as using marijuana. The patient is currently resting comfortably in the ICU. He is receiving a banana bag at 125 mL/hour and he is not requiring any supplemental oxygen. The nurse is Hollie, and she has him under good control with the orders I gave for the Ativan, which is 2 to 5 mg every hour or so. PAST MEDICAL HISTORY: Positive for hypertension. He also has a history of bipolar disorder, PTSD, chronic nicotine dependence, hypertension, previous episode of severe alcohol withdrawal syndrome and alcoholic seizures. SURGICAL HISTORY: Surgical history is apparently none. SOCIAL HISTORY: Positive for ongoing tobacco use and some marijuana use as well as vaping. Alcohol use has been heavy, as mentioned above, and he has been using a marijuana. HOME MEDICATIONS: Home medications apparently include gabapentin, Ativan and Wellbutrin XL. ALLERGIES: DENIED. REVIEW OF SYSTEMS: CONSTITUTIONAL: Agitation and confusion. NEUROLOGIC: Negative. HEENT: Negative. CARDIOVASCULAR: Negative. PULMONARY: Negative. GI: Negative. : Negative. RHEUMATOLOGIC: Negative. IMMUNOLOGIC: Negative. ENDOCRINOLOGIC: Negative. DERMATOLOGIC: Negative. PHYSICAL EXAMINATION: VITAL SIGNS: Current vital signs are reviewed. They include a temperature 98.4, heart rate 95, respiratory rate 20, blood pressure 151/95, mean 113, room-air saturation 97%. GENERAL APPEARANCE: Appears in no acute distress. HEENT: Examination is grossly unremarkable. Mucous membranes are moist. No oral lesions. NECK: Supple. Full range of motion. No adenopathy or thyromegaly. Neck veins are flat. CARDIOVASCULAR: Examination reveals regular rhythm and rate. Heart rate 95 beats per minute. S1, S2 normal. There is no S3, S4, or murmur. LUNGS: Lungs reveal clear breath sounds. No wheezes, rhonchi or crackles. ABDOMEN: Soft. Bowel sounds are heard. EXTREMITIES: Intact. No cyanosis, clubbing or edema. SKIN: Without rash. NEUROLOGIC: Neurologic examination is brief but nonfocal. The patient does not seem to be confused or disoriented. He is a bit agitated. Oriented x3. Speech sounds quite coherent. LABS: Reviewed. CBC is completely normal. Sodium 134, potassium 4.4, chloride 97. CO2 is 32. Anion gap is 5. BUN and creatinine were 8 and 0.65. No chest x-ray. CURRENT MEDICATIONS: Reviewed. He is currently on Ativan, magnesium replacement, nicotine patch, Zofran, Protonix and IV fluids. ASSESSMENT: 1. Rule out acute alcohol withdrawal syndrome secondary to heavy alcohol use over the last 3 weeks. 2. Previous history of alcohol withdrawal, severe, with alcoholic seizures. 3. Bipolar disorder. 4. Post-traumatic stress disorder. 5. History of ongoing tobacco use. 6. History of marijuana use. 7. Prior history of heavy alcohol abuse. 8. Vague history of hypertension. PLAN: The patient is being monitored in the ICU. Will continue with CIWA protocol. Will continue with medications for GI prophylaxis. Nicotine patch of 14 mg a day. No additional recommendations are made. Prognosis is guarded. Will continue to watch carefully. MMODL / IJN: [id number] /
[2019-09-27] MEDS: LORazepam 2 MG/ML INJ IV PRN ×14 (01:03→23:20)
[2019-09-27 04:48] LABS: Basophils % (A) 0 %; Eosinophils # (A) 0.1 k/uL (0-0.7); Eosinophils % (A) 1 %; HCT 39.7 % (39.0-53.0); HGB 13.4 gm/dL (13.0-17.5); Lymphocytes # (A) 2.6 k/uL (1.0-4.8); Lymphocytes % (A) 35 %; MCH 33.2 pg (25.0-35.0); MCHC 33.7 g/dL (31.0-37.0); MCV 98.6 fL (80.0-100.0); Mean Platelet Volume 7.3; Monocytes # (A) 0.4 k/uL (0-1.0); Monocytes % (A) 5 %; Neutrophils # (A) 4.1 k/uL (1.3-7.7); Neutrophils % (A) 56 %; Platelet Count 157 k/uL (150-450); RBC 4.03 m/uL (4.30-5.90); RDW 14.4 % (11.5-15.5); WBC 7.3 k/uL (3.8-10.6)
[2019-09-27 04:57] LABS: African American GFR (CKD) >90 (>60 ml/min/1.73 sqM); Anion Gap 5 mmol/L; Blood Urea Nitrogen 8 mg/dL (9-20); Calcium 8.5 mg/dL (8.4-10.2); Carbon Dioxide 21 mmol/L (22-30); Chloride 106 mmol/L (98-107); Glucose 95 mg/dL (74-99); Non-African American GFR(CKD) >90 (>60 ml/min/1.73 sqM); Sodium 132 mmol/L (137-145)
[2019-09-27 05:07] LABS: Magnesium 1.9 mg/dL (1.6-2.3); Potassium 4.4 mmol/L (3.5-5.1)
[2019-09-27] MEDS: MAGNESIUM SULFATE-D5W PMX 1 GM in DEXTROSE/WATER 1 100ML.BAG IVPB SCH ×2 (06:56→08:10)
[2019-09-27] MEDS: buPROPion XL 300 MG TAB.ER.24H PO SCH (08:07)
[2019-09-27] MEDS: GABAPENTIN 400 MG CAP PO SCH ×3 (08:07→23:19)
[2019-09-27] MEDS: NICOTINE 14MG/24HR PATCH TRANSDERM SCH (08:08)
[2019-09-27] MEDS: PANTOPRAZOLE 40 MG/10 ML VIAL IVP SCH (08:08)
[2019-09-27] MEDS: ACETAMINOPHEN TAB 325 MG TAB PO PRN ×2 (09:29→16:36)
--- NOTE | 2019-09-27 11:40 | P.PN ---
Subjective Progress Note Date: 09/27/19 Principal diagnosis: Acute alcohol withdrawal syndrome The patient is seen today 09/27/2019 in follow-up in the intensive care unit. He is currently awake and alert in no acute distress. He is maintaining O2 saturations in the 90s on room air. He has a 0.9 normal saline at 125 ML's per hour. He has required 12 mg of Ativan since midnight. This morning he states he is feeling that he does need a drink. He is tremorous. Oriented 3. White count 7.3. Hemoglobin 13.4. MCV 98.6. Sodium 132. Potassium 4.4. Bicarb 21. Creatinine 0.60. Objective - Vital Signs Vital signs: Vital Signs Temp 98.2 F 09/27/19 08:00 Pulse 81 09/27/19 11:00 Resp 26 H 09/27/19 11:00 BP 123/85 09/27/19 11:00 Pulse Ox 96 09/27/19 11:00 Intake & Output 09/26/19 09/27/19 09/27/19 18:59 06:59 18:59 Intake Total 750 5156.25 1025 Output Total 600 1600 975 Balance 150 3556.25 50 Weight 96 kg 98.9 kg Intake: IV 750 1500 625 0.9 NaCl- 1125 625 Mvi, Adult No.4 with Vit 750 375 K 10 ml Thiamine 100 mg Folic Acid 1 mg In 0.9% NaCl with KCl 20 Meq/l 1, 000 ml @ 125 mls/hr IV . BY DURATION PRINCESS Rx#: [id number] Intake, IV Titration 956.25 Amount Sodium Chloride 0.9% 1, 956.25 000 ml @ 125 mls/hr IV . BY DURATION PRINCESS Rx#: [id number] Oral 2700 400 Output: Urine 600 1600 975 Other: Voiding Method Toilet Urinal Urinal # Voids 1 # Bowel Movements 1 1 - Exam GENERAL EXAM: Alert, pleasant 38-year-old gentleman, somewhat tremorous, anxious, in no apparent distress. HEAD: Normocephalic. EYES: Normal reaction of pupils, equal size. NOSE: Clear with pink turbinates. THROAT: No erythema or exudates. NECK: No masses, no JVD. CHEST: No chest wall deformity. LUNGS: Equal air entry with no crackles, wheeze, rhonchi or dullness. CVS: S1 and S2 normal with no audible murmur, regular rhythm. ABDOMEN: No hepatosplenomegaly, normal bowel sounds, no guarding or rigidity. SPINE: No scoliosis or deformity SKIN: No rashes CENTRAL NERVOUS SYSTEM: No focal deficits, tone is normal in all 4 extremities. EXTREMITIES: There is no peripheral edema. No clubbing, no cyanosis. Peripheral pulses are intact. - Labs CBC & Chem 7: 09/27/19 03:51 09/27/19 03:51 Labs: Abnormal Lab Results - Last 24 Hours (Table) 09/26/19 09/27/19 09/27/19 Range/Units 11:16 03:51 03:51 RBC 4.03 L (4.30-5.90) m/uL Sodium 134 L 132 L (137-145) mmol/L Chloride 97 L (98-107) mmol/L Carbon Dioxide 32 H 21 L (22-30) mmol/L BUN 8 L 8 L (9-20) mg/dL Creatinine 0.65 L 0.60 L (0.66-1.25) mg/dL Glucose 106 H (74-99) mg/dL Assessment and Plan Assessment: 1 Acute alcohol withdrawal syndrome 2 Chronic tobacco dependence 3 Bipolar disorder 4 Posterior traumatic stress disorder 5 Hypertension 6 Previous history of alcohol withdrawal with alcoholic seizures Plan: The patient was seen and evaluated by Dr. Worrell Continue the CIWA protocol He is educated regarding the importance of complete alcohol cessation He is educated regarding the importance of complete smoking cessation NicoDerm patch is in place Probable transfer out of the ICU later today We will continue to follow make further recommendations based on his clinical status I, the cosigning physician, performed a history & physical examination of the patient. Lungs sounds are clear. Maintaining good O2 saturations in the 90s on room air. I discussed the assessment and plan of care with my nurse practitioner, Geovanna Morfin. I attest to the above note as dictated by her.
--- NOTE | 2019-09-27 12:27 | P.PN ---
Subjective Progress Note Date: 09/27/19 This is a 38-year-old gentleman with history of bipolar, PTSD, nicotine dependence, hypertension, history of severe alcohol withdrawal, and multiple other medical issues presented to the ER with complaints of starting to go into alcohol withdrawal. Reported previously he required an Ativan drip in the ICU for severe withdrawal including seizures. Patient reports he had been alcohol free for 2 years, started drinking approximately 3 weeks ago secondary to significant stress, depression. Reports he is suicidal. Patient was furloughed, had left him, taking the kids and dog. Reports drinking approximately 8 X 22 ounce beers daily and a bottle of wine. Denies any other drug abuse. Initially admitted to mental health unit. In full DTs, admitted to telemetry unit. Placed on CIWA ,attempted 2 doses, score currently up to 26-27. Ordered transferred to ICU, admitting and regional account executive notified. On admission toxicology screen reported benzos and THC. Serum alcohol 235. Coronavirus not detected. Afebrile, normal WBC.SBPs 130s to 160s, heart rates 90s to 106. Maintaining O2 sats in the high 90s on room air, respiratory rate 18-20. LFTs within normal limits. 09/27/2019 In active DTs.continues on IV fluid hydration including one banana pack per day .maintained on CIWA alcohol, required 12 mg of Ativan overnight, received another 15 mg of Ativan since 7 AM with current score,15. Maintaining O2 sats in the 90s on room air. Respiratory rate currently in the low 20s. No seizure activity. Objective - Vital Signs Vital signs: Vital Signs Temp 97.8 F 09/27/19 12:00 Pulse 87 09/27/19 12:00 Resp 22 09/27/19 12:00 BP 128/87 09/27/19 12:00 Pulse Ox 95 09/27/19 12:00 Intake & Output 09/26/19 09/27/19 09/27/19 18:59 06:59 18:59 Intake Total 750 5156.25 1150 Output Total 600 1600 1375 Balance 150 3556.25 -225 Weight 96 kg 98.9 kg 98.9 kg Intake: IV 750 1500 750 0.9 NaCl- 1125 750 Mvi, Adult No.4 with Vit 750 375 K 10 ml Thiamine 100 mg Folic Acid 1 mg In 0.9% NaCl with KCl 20 Meq/l 1, 000 ml @ 125 mls/hr IV . BY DURATION PRINCESS Rx#: [id number] Intake, IV Titration 956.25 Amount Sodium Chloride 0.9% 1, 956.25 000 ml @ 125 mls/hr IV . BY DURATION PRINCESS Rx#: [id number] Oral 2700 400 Output: Urine 600 1600 1375 Other: Voiding Method Toilet Urinal Urinal # Voids 1 # Bowel Movements 1 1 - Exam VITAL SIGNS: As above GENERAL: Sitting up in bed, active DTs, restless HEENT: Conjunctivae normal. eyes normal. Oral mucosa dry. NECK: No JVD. No thyroid enlargement. No LNs CARDIOVASCULAR: S1, S2 regular.. No murmur RESPIRATION: Breath sounds diminished in the bases. No rhonchi or crackles. No b ronchial breathing. ABDOMEN: Soft, nontender . No guarding. no masses palpable. No ascites, No hep atosplenomegaly.Bowel sounds heard. LEGS: No edema. no swelling PSYCHIATRY: Alert and oriented X2, depressed appearing NERVOUS SYSTEM: Cranial N 2-12 grossly normal. Moves all 4 limbs. No focal def icits. Strength and sensation grossly intact. Active DTs, tremors, restless Skin: no rash, diaphoretic Lymphatic system. No LN neck axilla. - Labs CBC & Chem 7: 09/27/19 03:51 09/27/19 03:51 Labs: Abnormal Lab Results - Last 24 Hours (Table) 09/26/19 09/27/19 09/27/19 Range/Units 11:16 03:51 03:51 RBC 4.03 L (4.30-5.90) m/uL Sodium 134 L 132 L (137-145) mmol/L Chloride 97 L (98-107) mmol/L Carbon Dioxide 32 H 21 L (22-30) mmol/L BUN 8 L 8 L (9-20) mg/dL Creatinine 0.65 L 0.60 L (0.66-1.25) mg/dL Glucose 106 H (74-99) mg/dL Assessment and Plan Assessment: Acute alcohol intoxication, serum EtOH 235 on admission with active DTs Suicidal Bipolar, depression Anxiety PTSD History of alcohol abuse, severe alcohol withdrawal including alcoholic seizures Hypertension Ongoing nicotine dependence Daily marijuana Obesity, BMI 28.7 Plan: Continue on current medication regime ,monitoring and symptomatic treatment. Maintain IV fluid hydration, CIWA protocol, suicide precautions, seizure precautions. Psych consult in place with recommendations pending. The impression and plan of care has been dictated as directed. : I performed a history and examination of this patient, discussed the same with the dictator. I agree with the dictator's note ,documented as a scribe. Any additional findings or plans will be noted.
[2019-09-27] MEDS: ONDANSETRON 4 MG/2 ML VIAL IVP PRN (23:20)
[2019-09-28] MEDS: LORazepam 2 MG/ML INJ IV PRN ×9 (01:15→21:19)
[2019-09-28 04:37] LABS: HCT 39.8 % (39.0-53.0); HGB 13.1 gm/dL (13.0-17.5); MCH 32.6 pg (25.0-35.0); MCHC 32.9 g/dL (31.0-37.0); Macrocytosis Slight; Mean Platelet Volume 7.1; Platelet Count 156 k/uL (150-450); RBC 4.02 m/uL (4.30-5.90); RDW 14.5 % (11.5-15.5); WBC 8.1 k/uL (3.8-10.6)
[2019-09-28 04:48] LABS: African American GFR (CKD) >90 (>60 ml/min/1.73 sqM); Anion Gap 4 mmol/L; Blood Urea Nitrogen 8 mg/dL (9-20); Calcium 8.6 mg/dL (8.4-10.2); Carbon Dioxide 24 mmol/L (22-30); Chloride 106 mmol/L (98-107); Glucose 96 mg/dL (74-99); Non-African American GFR(CKD) >90 (>60 ml/min/1.73 sqM); Sodium 134 mmol/L (137-145)
[2019-09-28] MEDS: ONDANSETRON 4 MG/2 ML VIAL IVP PRN (05:36)
[2019-09-28] MEDS: PANTOPRAZOLE 40 MG/10 ML VIAL IVP SCH (08:48)
[2019-09-28] MEDS: GABAPENTIN 400 MG CAP PO SCH ×3 (08:48→21:18)
[2019-09-28] MEDS: buPROPion XL 300 MG TAB.ER.24H PO SCH (08:48)
[2019-09-28] MEDS: NICOTINE 14MG/24HR PATCH TRANSDERM SCH (08:48)
[2019-09-28] MEDS: ACETAMINOPHEN TAB 325 MG TAB PO PRN (09:18)
--- NOTE | 2019-09-28 10:55 | P.PN ---
Subjective Progress Note Date: 09/28/19 Principal diagnosis: Acute alcohol withdrawal syndrome The patient is seen today 09/27/2019 in follow-up in the intensive care unit. He is currently awake and alert in no acute distress. He is maintaining O2 saturations in the 90s on room air. He has a 0.9 normal saline at 125 ML's per hour. He has required 12 mg of Ativan since midnight. This morning he states he is feeling that he does need a drink. He is tremorous. Oriented 3. White count 7.3. Hemoglobin 13.4. MCV 98.6. Sodium 132. Potassium 4.4. Bicarb 21. Creatinine 0.60. On 09/28/2019 patient seen in follow-up in the intensive care unit, he is awake and alert, in no acute distress, he is on 0.9 normal saline at a rate of 125 ML per hour which is alternating with the multivitamin infusion at the same rate. Seems to be oriented 3, no diaphoresis, no hallucinations, no tremors. He still states he feels anxious at times, apparently he required a 25 mg of Ativan last night for high CO2 protocol however he seems fairly comfortable today, appropriate, no signs of delirium, no auditory or visual hallucinations, no tremors. Room air pulse ox is 97%, patient is afebrile, hemodynamically stable, no shortness of breath. Sinus tach on the monitor with a heart rate of 100 BPM, tolerating oral intake, no nausea vomiting or diarrhea. Still has a security public safety officer at the bedside. His Wellbutrin has been restarted, we will consult psychiatry today for additional recommendations in regards to his EtOH withdrawal Objective - Vital Signs Vital signs: Vital Signs Temp 98 F 09/28/19 08:00 Pulse 75 09/28/19 09:00 Resp 17 09/28/19 09:00 BP 128/88 09/28/19 09:00 Pulse Ox 97 09/28/19 09:00 Intake & Output 09/27/19 09/28/19 09/28/19 18:59 06:59 18:59 Intake Total 3600 2200 450 Output Total 2675 2600 375 Balance 925 -400 75 Weight 98.9 kg 97.1 kg Intake: IV 1500 1500 250 0.9 NaCl- 1000 Mvi, Adult No.4 with Vit 500 375 K 10 ml Thiamine 100 mg Folic Acid 1 mg In 0.9% NaCl with KCl 20 Meq/l 1, 000 ml @ 125 mls/hr IV . BY DURATION PRINCESS Rx#: [id number] Sodium Chloride 0.9% 1, 1125 250 000 ml @ 125 mls/hr IV . BY DURATION PRINCESS Rx#: [id number] Intake, IV Titration 1000 Amount Sodium Chloride 0.9% 1, 1000 000 ml @ 125 mls/hr IV . BY DURATION PRINCESS Rx#: [id number] Oral 1100 700 200 Output: Urine 2675 2600 375 Other: Voiding Method Urinal Urinal Urinal # Voids 1 # Bowel Movements 4 1 - Exam GENERAL EXAM: Alert, very pleasant, 38-year-old white male, on room air, with pulse ox of 97% comfortable in no apparent distress. HEAD: Normocephalic/atraumatic. EYES: Normal reaction of pupils, equal size. Conjunctiva pink, sclera white. NOSE: Clear with pink turbinates. THROAT: No erythema or exudates. NECK: No masses, no JVD, no thyroid enlargement, no adenopathy. CHEST: No chest wall deformity. Symmetrical expansion. LUNGS: Equal air entry with no crackles, wheeze, rhonchi or dullness. CVS: Regular rate and rhythm, normal S1 and S2, no gallops, no murmurs, no rubs ABDOMEN: Soft, nontender. No hepatosplenomegaly, normal bowel sounds, no guarding or rigidity. EXTREMITIES: No clubbing, no edema, no cyanosis, 2+ pulses and upper and lower extremities. MUSCULOSKELETAL: Muscle strength and tone normal. SPINE: No scoliosis or deformity SKIN: No rashes CENTRAL NERVOUS SYSTEM: Alert and oriented -3. No focal deficits, tone is normal in all 4 extremities. PSYCHIATRIC: Alert and oriented -3. Appropriate affect. Intact judgment and insight. - Labs CBC & Chem 7: 09/28/19 03:58 09/28/19 03:58 Labs: Abnormal Lab Results - Last 24 Hours (Table) 09/28/19 09/28/19 Range/Units 03:58 03:58 RBC 4.02 L (4.30-5.90) m/uL Sodium 134 L (137-145) mmol/L BUN 8 L (9-20) mg/dL Creatinine 0.60 L (0.66-1.25) mg/dL Assessment and Plan Plan: Assessment: 1 Acute alcohol withdrawal syndrome 2 Chronic tobacco dependence 3 Bipolar disorder 4 Posterior traumatic stress disorder 5 Hypertension 6 Previous history of alcohol withdrawal with alcoholic seizures Plan: Continue with CIWA protocol, patient seems to be comfortable, he still complains of feeling anxious and having signs of withdrawal, however physically he looks better, no diaphoresis, no tremors, no auditory or visual hallucinations. He stable to go out of intensive care unit today to regular medical surgical floor with a security public safety officer, we'll consult psychiatry for additional recommendations in regards to his EtOH withdrawal. Hep-Lock IV fluids, start thiamine 100 mg by mouth twice daily I performed a history & physical examination of the patient and discussed their management with my nurse practitioner, Kristen Astudillo. I reviewed the nurse practitioner's note and agree with the documented findings and plan of care. Lung sounds are positive for clear breath sounds. The findings and the impression was discussed with the patient. I attest to the documentation by the nurse practitioner. Time with Patient: Less than 30
--- NOTE | 2019-09-28 12:17 | P.PN ---
Subjective Progress Note Date: 09/28/19 This is a 38-year-old gentleman with history of bipolar, PTSD, nicotine dependence, hypertension, history of severe alcohol withdrawal, and multiple other medical issues presented to the ER with complaints of starting to go into alcohol withdrawal. Reported previously he required an Ativan drip in the ICU for severe withdrawal including seizures. Patient reports he had been alcohol free for 2 years, started drinking approximately 3 weeks ago secondary to significant stress, depression. Reports he is suicidal. Patient was furloughed, had left him, taking the kids and dog. Reports drinking approximately 8 X 22 ounce beers daily and a bottle of wine. Denies any other drug abuse. Initially admitted to mental health unit. In full DTs, admitted to telemetry unit. Placed on CIWA ,attempted 2 doses, score currently up to 26-27. Ordered transferred to ICU, admitting and veneer gluer notified. On admission toxicology screen reported benzos and THC. Serum alcohol 235. Coronavirus not detected. Afebrile, normal WBC.SBPs 130s to 160s, heart rates 90s to 106. Maintaining O2 sats in the high 90s on room air, respiratory rate 18-20. LFTs within normal limits. 09/27/2019 In active DTs.continues on IV fluid hydration including one banana pack per day .maintained on CIWA alcohol, required 12 mg of Ativan overnight, received another 15 mg of Ativan since 7 AM with current score,15. Maintaining O2 sats in the 90s on room air. Respiratory rate currently in the low 20s. No seizure activity. 09/28/2019 currently receiving IV fluid hydration including banana bag, received 25 mg of Ativan overnight as per CIWA protocol. Currently without tremors, no diaphoresis. Reports anxiety. Denies hallucinations. Telemetry reporting borderline tachycardia. wreath and garland maker maintained at bedside. Psychiatry consult in place, recommendations pending. Objective - Vital Signs Vital signs: Vital Signs Temp 98 F 09/28/19 08:00 Pulse 67 09/28/19 08:00 Resp 16 09/28/19 08:00 BP 120/74 09/28/19 08:00 Pulse Ox 95 09/28/19 08:00 Intake & Output 09/27/19 09/28/19 09/28/19 18:59 06:59 18:59 Intake Total 3600 2200 250 Output Total 2675 2600 Balance 925 -400 250 Weight 98.9 kg 97.1 kg Intake: IV 1500 1500 250 0.9 NaCl- 1000 Mvi, Adult No.4 with Vit 500 375 K 10 ml Thiamine 100 mg Folic Acid 1 mg In 0.9% NaCl with KCl 20 Meq/l 1, 000 ml @ 125 mls/hr IV . BY DURATION PRINCESS Rx#: [id number] Sodium Chloride 0.9% 1, 1125 250 000 ml @ 125 mls/hr IV . BY DURATION PRINCESS Rx#: [id number] Intake, IV Titration 1000 Amount Sodium Chloride 0.9% 1, 1000 000 ml @ 125 mls/hr IV . BY DURATION PRINCESS Rx#: [id number] Oral 1100 700 Output: Urine 2675 2600 Other: Voiding Method Urinal Urinal Urinal # Voids 1 # Bowel Movements 4 - Exam VITAL SIGNS: As above GENERAL: Sitting up in bed, no acute distress HEENT: Conjunctivae normal. eyes normal. Oral mucosa moist NECK: No JVD. No thyroid enlargement. No LNs CARDIOVASCULAR: S1, S2 regular. No murmur RESPIRATION: Breath sounds diminished in the bases. No rhonchi or crackles. ABDOMEN: Soft, nontender . No guarding. no masses palpable. Positive Bowel sounds. LEGS: No edema. no swelling PSYCHIATRY: Alert and oriented X2, depressed appearing NERVOUS SYSTEM: Cranial N 2-12 grossly normal. Moves all 4 limbs. No focal deficits. Strength and sensation grossly intact. Skin: no rash Lymphatic system. No LN neck axilla. - Labs CBC & Chem 7: 09/28/19 03:58 09/28/19 03:58 Labs: Abnormal Lab Results - Last 24 Hours (Table) 09/28/19 09/28/19 Range/Units 03:58 03:58 RBC 4.02 L (4.30-5.90) m/uL Sodium 134 L (137-145) mmol/L BUN 8 L (9-20) mg/dL Creatinine 0.60 L (0.66-1.25) mg/dL Assessment and Plan Assessment: Acute alcohol intoxication, serum EtOH 235 on admission with active DTs Suicidal Bipolar, depression Anxiety PTSD History of alcohol abuse, severe alcohol withdrawal including alcoholic seizures Hypertension Ongoing nicotine dependence Daily marijuana Obesity, BMI 28.7 Plan: Continue on current medication regime ,monitoring and symptomatic treatment. Continue on CIWA protocol, suicide precautions, seizure precautions. Psych consult in place with recommendations pending. Cleared by veneer gluer for transfer out of ICU. The impression and plan of care has been dictated as directed. : I performed a history and examination of this patient, discussed the same with the dictator. I agree with the dictator's note ,documented as a scribe. Any additional findings or plans will be noted.
--- NOTE | 2019-09-28 12:28 | P.CN ---
Psychiatric Consult - . Consult date: 09/28/19 Consult:: 09/28/19 10:17 IDENTIFYING DATA: This patient is a 38-year-old male with a history of alcohol use disorder, a single has 1 kid and works for a [employer]. HISTORY OF PRESENT ILLNESS: The patient presented to the hospital with complaints of going into alcohol withdrawal and also having a competent get a history of alcohol withdrawal including ICU stay and seizures. Patient apparently reported that he was sober for 2 years and relapsed 3 weeks ago on alcohol. His blood alcohol level was 235 on admission. Patient initially spoke about being furloughed from work and feeling depressed that his left him with her children. He states that he misses him and has been crying repeatedly. He claimed that he has been drinking alcohol approximately 8 cans of 22 ounce beers per day and also a bottle of wine. He states that he was suicidal when he did come in to the hospital however now does not endorse suicidal ideations. Patient was transferred from the mental health unit initially to the ICU for further management of complicated alcohol withdrawal. Patient also spoke about having severe anxiety and feeling that his bipolar disorder was "uncontrolled". He spoke of being stable on lithium in the past however claims that he was not able to get it prescribed to him and has been off it for almost 2 years now. He states that he has not had any communication with his girlfriend and misses them. He spoke of poor sleep at night sleeping approximately 3-4 hours. He claims that he has had manic episodes in the past and the last one was 6 months ago where he had racing thoughts and pressured speech. At this time patient denies any suicidal or homical ideations, intent or plan. Patient denies any auditory, visual hallucinations and denies any paranoia or delusions. Patients admits to using alcohol as described above, marijuana occasionally and cigarettes daily. PAST PSYCHIATRIC HISTORY: Patient has a a history of bipolar disorder and alcohol dependence. Patient claims that he was hospitalized twice in the past and the last psychiatric hospitalization was in [facility] 2 years ago. He states that he does not have an outpatient psychiatrist and he denies any history of suicide attempts. PAST MEDICAL HISTORY: Hypertension. ALLERGIES: as per EMR. CHEMICAL DEPENDENCY HISTORY: as per HPI. FAMILY PSYCHIATRIC/SUBSTANCE USE HISTORY: States that his mother has mental illness but does not know what. SOCIAL HISTORY: Patient was born and raised in [facility] and claims to completed high school. He states that he dropped out of college. He denies any legal troubles at this time. He states that he lives alone now has 1 kid is single and works for a [employer]. MENTAL STATUS EXAM: General Appearance: Patient appears to be stated age is alert, anxious and dish eveled. Patient appears to have poor hygiene and grooming wearing hospital gown with poor eye contact. Behavior: Patient is calmly lying in bed without any agitated behavior. Anxious and depressed. Irritable at times. Crying repeatedly. Speech: Patient's speech is fluent and nonpressured. Mood/Affect: Patient reports their mood is "depressed and anxious", affect is congruent Suicidality/Homicidality: Patient denies having any suicidal or homicidal ideation intent or plan. Perceptions: Patient denies any visual hallucinations and denies any auditory hallucinations Though content/process: There is no evidence of any delusional thought content and thought process is linear and goal-directed. Depressive content, catastrophizing. Memory and concentration: AOX3, grossly intact for the purposes of this session. Can spell "WORLD" backwards Judgment and insight: poor IMPRESSIONS: Bipolar disorder, currently depressed Alcohol use disorder, moderate-severe, currently in withdrawal Cannabis use disorder, mild Nicotine dependence PLAN: -At this time patient DOES meet criteria for inpatient psychiatric admission. -Would recommend the following medication changes/additions: Continue on with CIWA protocol and Ativan when necessary and to continue to focus on objective signs of alcohol withdrawal as patient continues to receive significant amounts of alcohol. Will start Librium 25 mg 4 times a day for alcohol withdrawal with the plan to taper off. Discontinued Wellbutrin. We'll restart lithium at 300 mg twice a day for mood stabilization. Zyprexa 5 mg daily at bedtime for mood stabilization/depression. Melatonin 5 mg daily at bedtime for sleep. -Continue 1:1 sitter for safety -Cannot leave AMA at this time. Patient will need a petition and certification if attempting to leave AMA. -When medically stable and is clear on the alcohol withdrawal window and patient has stable vital signs and is not receiving any more Ativan IV, patient is eligible for transfer to a psych bed when available. -Psychiatry will sign off at this point, please contact with any questions. 09/28/19 12:17
[2019-09-28] MEDS: OLANZapine 5 MG TAB PO SCH (13:50)
[2019-09-28] MEDS: LITHIUM CARBONATE 300 MG CAP PO SCH ×2 (13:50→21:18)
[2019-09-28] MEDS: chlordiazePOXIDE 25 MG CAP PO SCH ×3 (13:53→21:18)
[2019-09-28] MEDS: MELATONIN 5 MG TABLET PO SCH (21:18)
[2019-09-28] MEDS: THIAMINE 100 MG TAB PO SCH (21:18)
[2019-09-29] MEDS: LORazepam 2 MG/ML INJ IV PRN (05:24)
[2019-09-29 05:33] LABS: Basophils % (A) 0 %; Eosinophils # (A) 0.2 k/uL (0-0.7); Eosinophils % (A) 3 %; HCT 40.5 % (39.0-53.0); HGB 14.1 gm/dL (13.0-17.5); Lymphocytes # (A) 2.2 k/uL (1.0-4.8); Lymphocytes % (A) 29 %; MCH 33.8 pg (25.0-35.0); MCHC 34.8 g/dL (31.0-37.0); MCV 97.1 fL (80.0-100.0); Mean Platelet Volume 6.6; Monocytes # (A) 0.4 k/uL (0-1.0); Monocytes % (A) 5 %; Neutrophils # (A) 4.6 k/uL (1.3-7.7); Neutrophils % (A) 62 %; Platelet Count 208 k/uL (150-450); RBC 4.17 m/uL (4.30-5.90); RDW 15.2 % (11.5-15.5); WBC 7.4 k/uL (3.8-10.6)
[2019-09-29 06:00] LABS: African American GFR (CKD) >90 (>60 ml/min/1.73 sqM); Anion Gap 6 mmol/L; Blood Urea Nitrogen 7 mg/dL (9-20); Calcium 8.8 mg/dL (8.4-10.2); Carbon Dioxide 25 mmol/L (22-30); Chloride 106 mmol/L (98-107); Glucose 94 mg/dL (74-99); Non-African American GFR(CKD) >90 (>60 ml/min/1.73 sqM); Potassium 3.9 mmol/L (3.5-5.1); Sodium 137 mmol/L (137-145)
[2019-09-29] MEDS: chlordiazePOXIDE 25 MG CAP PO SCH ×4 (08:09→22:17)
[2019-09-29] MEDS: LITHIUM CARBONATE 300 MG CAP PO SCH ×2 (08:09→20:55)
[2019-09-29] MEDS: GABAPENTIN 400 MG CAP PO SCH ×3 (08:09→21:10)
[2019-09-29] MEDS: THIAMINE 100 MG TAB PO SCH ×2 (08:09→20:54)
[2019-09-29] MEDS: NICOTINE 14MG/24HR PATCH TRANSDERM SCH ×2 (08:10→08:13)
[2019-09-29] MEDS: PANTOPRAZOLE 40 MG/10 ML VIAL IVP SCH (09:29)
--- NOTE | 2019-09-29 10:06 | P.PN ---
Subjective Progress Note Date: 09/29/19 Principal diagnosis: Acute alcohol withdrawal syndrome The patient is seen today 09/27/2019 in follow-up in the intensive care unit. He is currently awake and alert in no acute distress. He is maintaining O2 saturations in the 90s on room air. He has a 0.9 normal saline at 125 ML's per hour. He has required 12 mg of Ativan since midnight. This morning he states he is feeling that he does need a drink. He is tremorous. Oriented 3. White count 7.3. Hemoglobin 13.4. MCV 98.6. Sodium 132. Potassium 4.4. Bicarb 21. Creatinine 0.60. On 09/28/2019 patient seen in follow-up in the intensive care unit, he is awake and alert, in no acute distress, he is on 0.9 normal saline at a rate of 125 ML per hour which is alternating with the multivitamin infusion at the same rate. Seems to be oriented 3, no diaphoresis, no hallucinations, no tremors. He still states he feels anxious at times, apparently he required a 25 mg of Ativan last night for high CO2 protocol however he seems fairly comfortable today, appropriate, no signs of delirium, no auditory or visual hallucinations, no tremors. Room air pulse ox is 97%, patient is afebrile, hemodynamically stable, no shortness of breath. Sinus tach on the monitor with a heart rate of 100 BPM, tolerating oral intake, no nausea vomiting or diarrhea. Still has a patient safety attendant at the bedside. His Wellbutrin has been restarted, we will consult psychiatry today for additional recommendations in regards to his EtOH withdrawal On 09/29/2019 patient is seen in follow-up in the intensive care unit, he is an overflow for general medical surgical floor, patient safety attendant is at the bedside, patient is awake and alert, oriented 3, responding appropriately, no signs of delirium, no confusion, no complaints of headaches, room air pulse ox 96%, vital signs are stable, non-tachycardic. Respirations nonlabored, lung sounds are clear. No acute events overnight, only required 6 mg of Ativan overnight, he was seen by psychiatric services, was started on Librium 25 mg 4 times a day, Wellbutrin has been discontinued, lithium has been restarted and Zyprexa was added. Clinically stable, inpatient psychiatric admission was recommended after medically stable. Objective - Vital Signs Vital signs: Vital Signs Temp 98.5 F 09/28/19 21:34 Pulse 71 09/29/19 04:00 Resp 18 09/29/19 04:00 BP 109/85 09/28/19 21:34 Pulse Ox 96 09/28/19 21:34 Intake & Output 09/28/19 09/29/19 09/29/19 18:59 06:59 18:59 Intake Total 750 1360 Output Total 775 Balance -25 1360 Intake: IV 250 Sodium Chloride 0.9% 1, 250 000 ml @ 125 mls/hr IV . BY DURATION PRINCESS Rx#: [id number] Oral 500 1360 Output: Urine 775 Other: Voiding Method Urinal Urinal # Voids 1 1 # Bowel Movements 1 - Exam GENERAL EXAM: Alert, very pleasant, 38-year-old white male, on room air, with pulse ox of 97% comfortable in no apparent distress. HEAD: Normocephalic/atraumatic. EYES: Normal reaction of pupils, equal size. Conjunctiva pink, sclera white. NOSE: Clear with pink turbinates. THROAT: No erythema or exudates. NECK: No masses, no JVD, no thyroid enlargement, no adenopathy. CHEST: No chest wall deformity. Symmetrical expansion. LUNGS: Equal air entry with no crackles, wheeze, rhonchi or dullness. CVS: Regular rate and rhythm, normal S1 and S2, no gallops, no murmurs, no rubs ABDOMEN: Soft, nontender. No hepatosplenomegaly, normal bowel sounds, no guarding or rigidity. EXTREMITIES: No clubbing, no edema, no cyanosis, 2+ pulses and upper and lower extremities. MUSCULOSKELETAL: Muscle strength and tone normal. SPINE: No scoliosis or deformity SKIN: No rashes CENTRAL NERVOUS SYSTEM: Alert and oriented -3. No focal deficits, tone is normal in all 4 extremities. PSYCHIATRIC: Alert and oriented -3. Appropriate affect. Intact judgment and insight. - Labs CBC & Chem 7: 09/29/19 05:13 09/29/19 05:13 Labs: Abnormal Lab Results - Last 24 Hours (Table) 09/29/19 09/29/19 Range/Units 05:13 05:13 RBC 4.17 L (4.30-5.90) m/uL BUN 7 L (9-20) mg/dL Creatinine 0.63 L (0.66-1.25) mg/dL Assessment and Plan Plan: Assessment: 1 Acute alcohol withdrawal syndrome 2 Chronic tobacco dependence 3 Bipolar disorder 4 Posterior traumatic stress disorder 5 Hypertension 6 Previous history of alcohol withdrawal with alcoholic seizures Plan: Vital signs are stable, no acute events overnight, use of PRN Ativan significantly decreased in the last 24 hours, psychiatric consult was noted, patient was started on additional medications to help with EtOH withdrawal, maintain one-on-one patient safety attendant, stable to go out of intensive care unit to general medical floor. Medically stable to transfer to inpatient psychiatric unit today I performed a history & physical examination of the patient and discussed their management with my nurse practitioner, Kristen Astudillo. I reviewed the nurse practitioner's note and agree with the documented findings and plan of care. Lung sounds are positive for clear breath sounds. The findings and the impression was discussed with the patient. I attest to the documentation by the nurse practitioner. Time with Patient: Less than 30
[2019-09-29] MEDS: ACETAMINOPHEN TAB 325 MG TAB PO PRN ×3 (10:31→23:26)
[2019-09-29 10:38] VITALS: BMI 30.7
--- NOTE | 2019-09-29 12:12 | P.DS ---
Providers Date of admission: 09/26/19 10:35 Expected date of discharge: 09/29/19 Attending physician: Jay Robbins Consults: 09/26/19 10:58 Consult Physician Routine Consulting Provider: Favio Zapien Jr Consult Reason/Comments: medical management Do you want consulting provider notified?: Already Contacted Placement Type Exists?: Yes 09/26/19 11:50 Consult Physician Urgent Consulting Provider: Andreas Worrell Consult Reason/Comments: CIWA/ICU management Do you want consulting provider notified?: Yes 09/26/19 11:51 Consult Physician Routine Consulting Provider: Andreas Worrell Consult Reason/Comments: ICU management Do you want consulting provider notified?: Yes 09/27/19 09:39 Consult Physician Routine Consulting Provider: Jameel Adams Consult Reason/Comments: from [facility] [place], Do you want consulting provider notified?: Yes Primary care physician: Stated None Hospital Course: Final Diagnoses Acute alcohol intoxication, serum EtOH 235 on admission Suicidal Bipolar, depression Anxiety PTSD History of alcohol abuse, severe alcohol withdrawal including alcoholic seizures Hypertension Ongoing nicotine dependence Daily marijuana Obesity, BMI 28.7 Hospital course:This is a 38-year-old gentleman with history of bipolar, PTSD, nicotine dependence, hypertension, history of severe alcohol withdrawal, and multiple other medical issues presented to the ER with complaints of starting to go into alcohol withdrawal. Reported previously he required an Ativan drip in the ICU for severe withdrawal including seizures. Patient reports he had been alcohol free for 2 years, started drinking approximately 3 weeks ago secondary to significant stress, depression. Reports he is suicidal. Patient was furloughed, had left him, taking the kids and dog. Reports drinking approximately 8 X 22 ounce beers daily and a bottle of wine. Denies any other drug abuse. Initially admitted to mental health unit. In full DTs, admitted to telemetry unit. Placed on CIWA ,attempted 2 doses, score currently up to 26- 27. Ordered transferred to ICU, admitting and sales representative health insurance notified. On admission toxicology screen reported benzos and THC. Serum alcohol 235. C oronavirus not detected. Afebrile, normal WBC.SBPs 130s to 160s, heart rates 90s to 106. Maintaining O2 sats in the high 90s on room air, respiratory rate 18-20. LFTs within normal limits. 09/27/2019 In active DTs.continues on IV fluid hydration including one banana pack per day .maintained on CIWA alcohol, required 12 mg of Ativan overnight, received another 15 mg of Ativan since 7 AM with current score,15. Maintaining O2 sats in the 90s on room air. Respiratory rate currently in the low 20s. No seizure activity. 09/28/2019 currently receiving IV fluid hydration including banana bag, received 25 mg of Ativan overnight as per [facility] protocol. Currently without tremors, no diaphoresis. Reports anxiety. Denies hallucinations. Telemetry reporting borderline tachycardia. sas sql developer maintained at bedside. Psychiatry consult in place, recommendations pending. Significant clinical improvement. Maintained on Librium, lithium and Zyprexa. Required a total of 6 mg of Ativan overnight, none this morning. Patient cleared for discharge to inpatient mental health unit by sales representative health insurance. Patient is being discharged to mental health unit in stable condition with guarded prognosis. The impression and plan of care has been dictated as directed. : I performed a history and examination of this patient, discussed the same with the dictator. I agree with the dictator's note ,documented as a scribe. Any additional findings or plans will be noted. Patient Condition at Discharge: Stable Plan - Discharge Summary Discharge Rx Participant: No New Discharge Prescriptions: New Folic Acid 1 mg PO W/LUNCH tab Nicotine 14Mg/24Hr Patch [Habitrol] 1 patch TRANSDERM DAILY patch chlordiazePOXIDE HCl [Librium] 25 mg PO QID cap [place] Carbonate 300 mg PO BID cap Melatonin 5 mg PO HS tablet Acetaminophen Tab [Tylenol] 650 mg PO Q4HR PRN tab PRN Reason: Fever And/ Or Pain Thiamine [Vitamin B-1] 100 mg PO DAILY #1 tab OLANZapine [ZyPREXA] 5 mg PO HS tab Famotidine [Pepcid] 20 mg PO BID #1 tablet Continue Gabapentin 800 mg PO TID Discontinued buPROPion XL [Wellbutrin Xl] 300 mg PO DAILY LORazepam [Ativan] 0.5 mg PO BID 3 Days #6 tab Discharge Medication List Gabapentin 800 mg PO TID 04/14/19 [History] Acetaminophen Tab [Tylenol] 650 mg PO Q4HR PRN tab 09/29/19 [Rx] Famotidine [Pepcid] 20 mg PO BID #1 tablet 09/29/19 [Rx] Folic Acid 1 mg PO W/LUNCH tab 09/29/19 [Rx] [place] Carbonate 300 mg PO BID cap 09/29/19 [Rx] Melatonin 5 mg PO HS tablet 09/29/19 [Rx] Nicotine 14Mg/24Hr Patch [Habitrol] 1 patch TRANSDERM DAILY patch 09/29/19 [Rx] OLANZapine [ZyPREXA] 5 mg PO HS tab 09/29/19 [Rx] Thiamine [Vitamin B-1] 100 mg PO DAILY #1 tab 09/29/19 [Rx] chlordiazePOXIDE HCl [Librium] 25 mg PO QID cap 09/29/19 [Rx] Activity/Diet/Wound Care/Special Instructions: Discharge to MHU Discharge Disposition: TRANSFER TO PSYCH HOSP/UNIT
[2019-09-29] MEDS ORDERED: FOLIC ACID 1 MG TAB PO SCH (12:30)
[2019-09-29 17:58] VITALS: PULSE 78
[2019-09-29] MEDS: OLANZapine 5 MG TAB PO SCH (20:54)
[2019-09-29] MEDS: MELATONIN 5 MG TABLET PO SCH (22:17)
[2019-09-30 00:08] VITALS: BP 106/64; RESP 16; TEMP 98
== END 2019-09-30 00:44 | DRG 897 ==
LOC: 3SCARD 10:35 → 2SICU 12:24
PROVIDERS: ADMIT Psychiatry & Neurology Psychiatry; ATTEND Psychiatry & Neurology Psychiatry
DX: F10.221 Alcohol dependence with intoxication delirium (principal); R45.851 Suicidal ideations; E66.9 Obesity, unspecified; F17.210 Nicotine dependence, cigarettes, uncomplicated; F31.9 Bipolar disorder, unspecified; F43.12 Post-traumatic stress disorder, chronic; I10 Essential (primary) hypertension; F41.9 Anxiety disorder, unspecified; Z68.28 Body mass index [BMI] 28.0-28.9, adult; Z79.899 Other long term (current) drug therapy; Y90.7 Blood alcohol level of 200-239 mg/100 ml
CPT/HCPCS: 80048; 80053; 83735; 84484; 85025; 85027

== ENCOUNTER 2019-09-29 23:32 | Inpatient (IN) | payer BC ==
[2019-09-30] MEDS ORDERED: MAGNESIUM HYDROXIDE 2,400 MG/10 ML CUP PO PRN (01:29)
[2019-09-30] MEDS: NICOTINE 14MG/24HR PATCH TRANSDERM SCH (08:49)
[2019-09-30] MEDS: GABAPENTIN 400 MG CAP PO SCH ×3 (08:49→21:09)
[2019-09-30] MEDS: chlordiazePOXIDE 25 MG CAP PO SCH ×4 (08:49→21:10)
[2019-09-30] MEDS: THIAMINE 100 MG TAB PO SCH ×2 (08:49→21:09)
[2019-09-30] MEDS: LITHIUM CARBONATE 300 MG CAP PO SCH ×2 (08:49→21:09)
[2019-09-30] MEDS: ACETAMINOPHEN TAB 325 MG TAB PO PRN ×3 (08:50→16:43)
--- NOTE | 2019-09-30 11:40 | P.HP ---
Psychiatric H&P - . History & Physical: Allergies Allergy/AdvReac Type Severity Reaction Status Date / Time No Known Allergies Allergy Verified 09/30/19 01:46 Vital Signs Temp 97.0 F L 09/30/19 01:47 Pulse 76 09/30/19 01:47 Resp 16 09/30/19 01:47 BP 112/76 09/30/19 01:47 Pulse Ox 100 09/30/19 01:47 Intake & Output 09/29/19 09/30/19 09/30/19 18:59 06:59 18:59 Weight 93.7 kg 09/30/19 11:30 IDENTIFYING DATA: This patient is a 38-year-old male who was admitted to the mental health unit for suicidal ideation. HPI: The patient was previously admitted to the mental health unit for suicidal ideation but he was found to be medically unstable and had to be transferred to the medical floor immediately. He spent several days in the intensive care unit being treated for acute alcohol withdrawal. He was seen by Dr. Teran prior to his transfer off of this unit and then later by Dr. Biggs is a psychiatric consultation. The patient had shared that his significant other had left with their children and in the context of the coronavirus pandemic and lack of work he became overwhelmed. He had been sober for 2 years but then began drinking daily for 3 weeks straight. He reported that he was consuming 8, 22 ounce beers per day and a bottle of wine. For full details please refer to the previous psychiatric evaluation and the psychiatric consultation on 09/28/2019. PAST PSYCHIATRIC HISTORY: The patient is known to have a history of bipolar disorder he endorses manic episodes even in the context of the 2 years of sobriety from alcohol. He was hospitalized twice in the past psychiatrically the last one was in [place] 2 years ago. He does not have outpatient mental health care arranged at this time no history of suicide attempts. He has been previously treated with lithium carbonate with some success, Wellbutrin, Lexapro, and most recently Zyprexa. He states Zyprexa gives him restless leg symptoms and his appetite is significantly increased. PMH: Hypertension ALLERGIES: no Known drug ALLERGIES MEDICATIONS: Refer to [facility] CHEMICAL DEPENDENCY HISTORY: He has a history of alcohol use disorder, he has been in chemical dependency treatment before on an inpatient basis specifically at [facility]. FAMILY PSYCHIATRIC HISTORY: His mother has an unidentified mental illness, no suicides in the family FAMILY CHEMICAL DEPENDENCY HISTORY:none reported SOCIAL HISTORY: The patient is 38 years old he was born and raised in the [place] area he completed high school he did not complete college. He currently lives alone his significant other moved out of state with their child. He is employed at a manufacturing company and expects he can return there once restrictions lifted. No legal or abuse history none. MENTAL STATUS EXAM: The patient is a male appearing his stated age she wears eyeglasses his hair is short he is dressed in his own clothing. Eye contact is appropriate speech is fluent spontaneous nonpressured. He indicates today's the first day that his mood is better. He feels safe in terms of suicidal thoughts in the hospital he is reporting no homicidal ideation intent or plan. He is reporting no auditory or visual hallucinations today. He is endorsing no specific delusions there is no observed evidence of psychosis. Thought process is linear he circumstantial at times but demonstrates no tangential thinking loose associations or flight of ideas. He does not appear hypomanic or manic. He demonstrates no verbal or physical aggressiveness he demonstrates no involuntary repetitive movements. Affect is constricted. He is oriented to person place and date he is able to name the days of the week backwards. STRENGTHS/WEAKNESSES: Strengths: Housing, employment weaknesses: Alcohol use INTELLECTUAL FUNCTIONING: Average IMPRESSIONS: [] 1. Bipolar 1 disorder most recent depressed severe without psychosis, alcohol use disorder severe, cannabis use disorder mild PLAN: The patient has been admitted to the mental health unit voluntarily. We reviewed his presenting symptoms and treatment options. We decided to continue the lithium carbonate 300 mg twice daily. We discussed that this may demonstrate technically a subtherapeutic level but he has felt that that dose was appropriate for him while he took it. We will draw a lithium level Thursday. Neurontin has been restarted he feels that this does provide a mood stabilizing influence although we discussed that it is technically not a mood stabilizer. We will initiate BuSpar 10 mg twice daily with a plan of titrating further to address symptoms of anxiety. CIWA scores were reviewed. He is on scheduled Librium. We will plan to taper him off of Librium during the course of the hospitalization. He will be seen by internal medicine for routine history and physical exam social work will meet with the patient to complete a psychosocial assessment and to begin discharge planning. We will involve any support in treatment and discharge planning as he will allow. He is instructed to participate fully in the milieu. We discussed the possibility of having him go to inpatient chemical dependency treatment again but he refuses. We will discuss possible use of naltrexone.
[2019-09-30] MEDS: busPIRone HCl 10 MG TAB PO SCH ×2 (12:39→21:09)
[2019-09-30] MEDS: FOLIC ACID 1 MG TAB PO SCH (12:39)
--- NOTE | 2019-09-30 17:06 | P.HPIM ---
<Og Peng - Last Filed: 09/30/19 16:41> History of Present Illness H&P Date: 09/30/19 Chief Complaint: Suicidal ideations and acute alcohol withdrawal 38-year-old male well known to the practice. Was previously admitted to mental health unit for suicidal ideation and while in the mental health unit he was found to be going through acute alcohol withdrawal and was subsequently moved to the ICU. In the five-day ICU stay he was placed on the CIWA protocol to help manage his DTs. His significant other took their kids and left, since then he has been drinking quite heavily. Up until this point he had been sober for approximately 2 years but during this episode was drinking approximately 8, 22 ounce beers per day and a bottle of wine. Past medical history for him bipolar disorder, 2 years sobriety from alcohol, hypertension. He has been hospitalized 2 other other times for psychiatric help with last time being 2 years ago in [place]. Review of Systems Constitutional: Reports chills, Reports chronic headaches, Reports sweats Ears: deny: decreased hearing, ear discharge, earache, tinnitus Ears, nose, mouth and throat: Reports headache, Denies sore throat Respiratory: Reports cough Gastrointestinal: Reports as per HPI, Denies abdominal pain, Denies diarrhea, Denies nausea, Denies vomiting Genitourinary: Reports decreased libido Neurological: Reports headaches, Reports motor disturbance Psychiatric: Reports anxiety, Reports difficulty concentrating, Reports insomnia, Reports irritability Past Medical History Past Medical History: Hypertension Additional Past Medical History / Comment(s): . History of Any Multi-Drug Resistant Organisms: None Reported Past Surgical History: No Surgical Hx Reported Past Anesthesia/Blood Transfusion Reactions: No Reported Reaction Smoking Status: Current every day smoker - Past Family History Father Additional Family Medical History / Comment(s): Drug addict and murdered by a shot gun on father's day in 1997 Mother History Unknown: Yes (mental illness) Family Medical History: No Reported History Additional Family Medical History / Comment(s): Mother with mental illness Medications and Allergies Home Medications Medication Instructions Recorded Confirmed Type Gabapentin 800 mg PO TID 04/14/19 09/26/19 History Acetaminophen Tab [Tylenol] 650 mg PO Q4HR PRN tab 09/29/19 Rx Famotidine [Pepcid] 20 mg PO BID #1 tablet 09/29/19 Rx Folic Acid 1 mg PO W/LUNCH tab 09/29/19 Rx [place] Carbonate 300 mg PO BID cap 09/29/19 Rx Melatonin 5 mg PO HS tablet 09/29/19 Rx Nicotine 14Mg/24Hr Patch [Habitrol] 1 patch TRANSDERM DAILY patch 09/29/19 Rx OLANZapine [ZyPREXA] 5 mg PO HS tab 09/29/19 Rx Thiamine [Vitamin B-1] 100 mg PO DAILY #1 tab 09/29/19 Rx chlordiazePOXIDE HCl [Librium] 25 mg PO QID cap 09/29/19 Rx Allergies Allergy/AdvReac Type Severity Reaction Status Date / Time No Known Allergies Allergy Verified 09/30/19 01:46 Physical Exam Vitals: Vital Signs Temp Pulse Resp BP Pulse Ox 09/30/19 12:00 98.3 F 09/30/19 01:47 97.0 F L 76 16 112/76 100 Intake and Output 09/30/19 09/30/19 09/30/19 06:59 14:59 22:59 Other: Weight 93.7 kg GENERAL: Well-appearing, well-nourished and in no acute distress. HEAD: Atraumatic, normocephalic. EYES: Pupils equal round and reactive to light, extraocular movements intact, sclera anicteric, conjunctiva are normal. ENT:nares patent, oropharynx clear without exudates. Moist mucous membranes. NECK: Normal range of motion, supple without lymphadenopathy or JVD, no thyromegaly LUNGS: Breath sounds clear to auscultation bilaterally and equal. No wheezes rales or rhonchi. HEART: Regular rate and rhythm without murmurs, rubs or gallops.S1S2 Normal ABDOMEN: Soft, nontender, normoactive bowel sounds. No guarding, no rebound. No masses appreciated. EXTREMITIES: Normal range of motion, no pitting or edema. No clubbing or cyanosis. NEUROLOGICAL: Cranial nerves II through XII grossly intact. Normal speech, normal gait. PSYCH: Normal mood, normal affect, not hypomanic or manic at this time. SKIN: Warm, Dry, normal turgor, no rashes or lesions noted. Thrombosis Risk Factor Assmnt - DVT/VTE Prophylaxis DVT/VTE Prophylaxis: Low risk, early ambulation encouraged - Choose All That Apply Any of the Below Risk Factors Present?: Yes Each Factor Represents 1 point: Age 41-60 years, Obesity (BMI >25) Other Risk Factors: No Other congenital or acquired thrombophilia - If yes, enter type in comment: No Thrombosis Risk Factor Assessment Total Risk Factor Score: 2 Thrombosis Risk Factor Assessment Level: Low Risk Assessment and Plan (1) Depressed bipolar I disorder Current Visit: Yes Status: Acute Code(s): F31.9 - BIPOLAR DISORDER, UNSPECIFIED SNOMED Code(s): 41474751 (2) Substance abuse Current Visit: Yes Status: Acute Code(s): F19.10 - OTHER PSYCHOACTIVE SUBSTANCE ABUSE, UNCOMPLICATED SNOMED Code(s): 57386342 (3) Alcohol withdrawal Current Visit: No Status: Acute Code(s): F10.239 - ALCOHOL DEPENDENCE WITH WITHDRAWAL, UNSPECIFIED SNOMED Code(s): 405598835 Plan: 1 follow psychiatric recommendations. 2. We'll follow labs. 3. We will follow closely. Time with Patient: Greater than 30 <Favio Zapien Jr - Last Filed: 10/01/19 09:57> Physical Exam Osteopathic Statement: *. No significant issues noted on an osteopathic structural exam other than those noted in the History and Physical/Consult. Vitals: Vital Signs Temp Pulse Resp BP Pulse Ox 10/01/19 00:20 97.7 F 84 14 128/96 97 09/30/19 17:30 99.8 F H 09/30/19 12:00 98.3 F Results Labs: Abnormal Lab Results - Last 24 Hours (Table) 09/29/19 Range/Units 05:13 Cholesterol 224 H (<200) mg/dL LDL Cholesterol, Calc 102 H (0-99) mg/dL HDL Cholesterol 92 H (40-60) mg/dL
[2019-09-30] MEDS ORDERED: OLANZapine 5 MG TAB PO SCH (21:00)
[2019-09-30] MEDS: MELATONIN 5 MG TABLET PO SCH (21:09)
[2019-10-01] MEDS: ACETAMINOPHEN TAB 325 MG TAB PO PRN ×4 (00:30→21:13)
[2019-10-01] MEDS ORDERED: OLANZapine 5 MG TAB PO STA (02:55)
[2019-10-01 05:44] LABS: Cholesterol 224 mg/dL (<200); HDL Cholesterol 92 mg/dL (40-60); LDL Cholesterol,Calculated 102 mg/dL (0-99); Triglycerides 149 mg/dL (<150)
[2019-10-01] MEDS: NICOTINE 14MG/24HR PATCH TRANSDERM SCH (08:16)
[2019-10-01] MEDS: chlordiazePOXIDE 25 MG CAP PO SCH ×4 (08:17→21:13)
[2019-10-01] MEDS: LITHIUM CARBONATE 300 MG CAP PO SCH ×2 (08:17→21:12)
[2019-10-01] MEDS: THIAMINE 100 MG TAB PO SCH ×2 (08:17→21:12)
[2019-10-01] MEDS: busPIRone HCl 10 MG TAB PO SCH ×3 (08:17→21:12)
[2019-10-01] MEDS: GABAPENTIN 400 MG CAP PO SCH ×3 (08:17→21:13)
[2019-10-01] MEDS ORDERED: traZODone HCL 50 MG TAB PO PRN (09:16)
--- NOTE | 2019-10-01 09:19 | P.PN ---
Progress Note - Text Progress Note Date: 10/01/19 Interval history: Patient was seen wandering the hallways and was directable and agreeable to s peak with junior technical writer. Patient claims that he was frustrated last night because he did not want to take the antipsychotic Zyprexa for sleep and anxiety and also reported to have restless leg symptoms. He states that he was kicking the covers off the bed all night however did end up sleeping afterwards. He claims that his anxiety has been mildly improving in mood as well. Patient requests another medication as needed for sleep and was okay with trazodone. He claims that he is going to groups and try to participate. At this time patient denies any suicidal or homicidal ideations intent or plan. Denies any Auditory or visual hallucinations. Patient denies any side effects from the medications and has been compliant with meds. Mental status exam: General Appearance: Patient appears to be stated age is wearing glasses, alert, directable, and attempts to be cooperative. Behavior: No agitated behavior. Patient is calm and directable Speech: Patient's speech is fluent and nonpressured. Mood/Affect: Mood is improving mildly, affect is congruent and constricted. Suicidality/Homicidality: Patient denies having any suicidal or homicidal ideation intent or plan. Perceptions: Patient denies any auditory or visual hallucinations. Though content/process: There is no evidence of any delusional thought content and thought process is linear and goal-directed. Preoccupied with his symptoms. Memory and concentration: AOX3, grossly intact for the purposes of this session Judgment and insight: improving mildly Assessment/Plan: Continue with current diagnosis. Patient continues to meet criteria for inpatient psychiatric admission for symptom stabilization and safety.Patient will be maintained on current psychotropic medication regimen with the exception of adding trazodone as needed for sleep and ropinirole 0.25 mg daily at bedtime for restless leg symptoms. Monitor for medication compliance and for any psychotropic medication side effects. Will continue to monitor ongoing response to treatment. Encouraged participation in milieu.
[2019-10-01] MEDS: MAG HYDROX/AL HYDROX/SIMETH 30 ML CUP PO PRN (11:12)
[2019-10-01 11:28] LABS: Hemoglobin A1C 4.7 % (4.0-6.0)
[2019-10-01] MEDS: FOLIC ACID 1 MG TAB PO SCH (12:08)
[2019-10-01] MEDS: MELATONIN 5 MG TABLET PO SCH (21:12)
[2019-10-02] MEDS: NICOTINE 14MG/24HR PATCH TRANSDERM SCH (08:00)
[2019-10-02] MEDS: GABAPENTIN 400 MG CAP PO SCH ×3 (08:01→21:21)
[2019-10-02] MEDS: busPIRone HCl 10 MG TAB PO SCH ×3 (08:01→21:20)
[2019-10-02] MEDS: THIAMINE 100 MG TAB PO SCH ×2 (08:01→21:21)
[2019-10-02] MEDS: chlordiazePOXIDE 25 MG CAP PO SCH ×3 (08:01→21:20)
[2019-10-02] MEDS: LITHIUM CARBONATE 300 MG CAP PO SCH ×2 (08:01→21:19)
[2019-10-02] MEDS: ACETAMINOPHEN TAB 325 MG TAB PO PRN ×2 (08:02→16:41)
--- NOTE | 2019-10-02 10:36 | P.PN ---
Progress Note - Text Progress Note Date: 10/02/19 Interval history: Patient was seen taking part in group this morning and was directable and agr eeable to speak with chief writer. Patient was apologetic for being irritable and argumentative with chief writer yesterday. He states that he is feeling less "edgy today" and states that he got better sleep last night. He claims that the restless leg symptoms have been improving on the Requ[place]. He states that "today was the only day that I didn't wake up covered in sweat". He admits to improving anxiety and was okay with titrating down his Librium to 3 times a day dosing today. He claims that he is going to groups and try to participate. At this time patient denies any suicidal or homicidal ideations intent or plan. Denies any Auditory or visual hallucinations. Patient denies any side effects from the medications and has been compliant with meds. Mental status exam: General Appearance: Patient appears to be stated age is wearing glasses, alert, directable, and attempts to be cooperative today. Behavior: No agitated behavior. Patient is calm and directable. Appears to be less anxious and more cooperative. Speech: Patient's speech is fluent and nonpressured. Mood/Affect: Mood is improving mildly, affect is congruent and constricted. Suicidality/Homicidality: Patient denies having any suicidal or homicidal ideation intent or plan. Perceptions: Patient denies any auditory or visual hallucinations. Though content/process: There is no evidence of any delusional thought content and thought process is linear and goal-directed. Memory and concentration: AOX3, grossly intact for the purposes of this session Judgment and insight: improving mildly Assessment/Plan: Continue with current diagnosis. Patient continues to meet criteria for inpatient psychiatric admission for symptom stabilization and safety.Patient will be maintained on current psychotropic medication regimen wit h the exception of decreasing Librium to 25 mg 3 times a day for anxiety associated with alcohol withdrawal. Monitor for medication compliance and for any psychotropic medication side effects. Will continue to monitor ongoing response to treatment. Encouraged participation in milieu.
[2019-10-02] MEDS: FOLIC ACID 1 MG TAB PO SCH (12:06)
[2019-10-02] MEDS: IBUPROFEN 600 MG TAB PO PRN ×2 (12:07→21:20)
[2019-10-02] MEDS: MELATONIN 5 MG TABLET PO SCH (21:20)
[2019-10-03] MEDS: GABAPENTIN 400 MG CAP PO SCH ×3 (07:48→21:24)
[2019-10-03] MEDS: NICOTINE 14MG/24HR PATCH TRANSDERM SCH (07:48)
[2019-10-03] MEDS: busPIRone HCl 10 MG TAB PO SCH ×3 (07:49→21:22)
[2019-10-03] MEDS: ACETAMINOPHEN TAB 325 MG TAB PO PRN ×2 (07:49→15:59)
[2019-10-03] MEDS: LITHIUM CARBONATE 300 MG CAP PO SCH ×3 (07:49→21:22)
[2019-10-03] MEDS: THIAMINE 100 MG TAB PO SCH ×2 (07:49→21:22)
[2019-10-03] MEDS: chlordiazePOXIDE 25 MG CAP PO SCH ×3 (07:49→21:24)
--- NOTE | 2019-10-03 11:40 | P.PN ---
Progress Note - Text Interval history: The patient's found in group he follows me to an interview room. He indicates his mood is slowly getting better. He states he has been struggling with some racing thoughts and irritability. He states he was angry over the weekend with the covering psychiatrist. He indicates he is still experiencing sequela from detoxing from alcohol. His Librium was reduced to 3 times daily which appears appropriate. He has been attending groups. We reviewed his psychotropic medication in detail. His lithium level was 0.3 we discussed the need to titrate that further and he is agreeable. Mental status exam: The patient is alert he is dressed in his own clothing eye contact is appropriate speech is fluent spontaneous nonpressured. He describes that his mood is down and irritable at times. He reports some hopelessness thinking. He indicates that he safe in the hospital. No thoughts of harming others. He is reporting no auditory or visual hallucinations or any specific delusions. He demonstrates no verbal or physical aggressiveness. With outstretched arms he demonstrates a very fine tremor. He demonstrates no tangential thinking loose associations or flight of ideas he does not appear hypomanic or manic. Insight and judgment limited. Plan: The patient will continue on his current psychotropic medications however we will titrate the lithium carbonate to 300 mg 3 times daily. We will monitor him for safety and encourage full participation in the milieu. Vital signs reviewed CIWA scores reviewed. He requires continued psychiatric hospitalization. Later in the week we will draw another lithium level we will continue to work on tapering him off of Librium which needs to be accomplished prior to discharge. He continues to decline the opportunity of attending inpatient chemical dependency treatment.
[2019-10-03] MEDS: IBUPROFEN 600 MG TAB PO PRN ×2 (12:22→21:26)
[2019-10-03] MEDS: FOLIC ACID 1 MG TAB PO SCH (12:22)
[2019-10-03] MEDS: MELATONIN 5 MG TABLET PO SCH (21:21)
[2019-10-04] MEDS: chlordiazePOXIDE 25 MG CAP PO SCH ×2 (08:27→21:07)
[2019-10-04] MEDS: LITHIUM CARBONATE 300 MG CAP PO SCH ×3 (08:27→21:07)
[2019-10-04] MEDS: THIAMINE 100 MG TAB PO SCH ×2 (08:27→21:08)
[2019-10-04] MEDS: busPIRone HCl 10 MG TAB PO SCH ×3 (08:27→21:07)
[2019-10-04] MEDS: GABAPENTIN 400 MG CAP PO SCH ×3 (08:27→21:07)
[2019-10-04] MEDS: NICOTINE 14MG/24HR PATCH TRANSDERM SCH (08:27)
[2019-10-04] MEDS: IBUPROFEN 600 MG TAB PO PRN ×3 (08:28→21:07)
--- NOTE | 2019-10-04 10:50 | P.PN ---
Progress Note - Text Interval history: The patient is found in group he follows me to an interview room. He indicates that his mood is slowly improving. He states that he does feel irritable at times he is having some racing thoughts. He reports having some difficulty with sleep last evening. Alcohol withdrawal symptoms continue to improve he states he does still have some fine tremor of his hands and he feels that he is excessively sweating. CIWA scores are reviewed. We discussed his psychotropic medications. We discussed reducing the Librium further. He is reluctantly agreeable. We discussed initiating naltrexone and he will give this consideration we may be able to initiate that tomorrow. Mental status exam: The patient is alert he is dressed in his own clothing eye contact is appropriate hygiene grooming fair. Speech is fluent spontaneous nonpressured. He reports that his mood is up and down he endorses some racing thoughts. He reports feeling safe in the hospital he is reporting no homicidal ideation intent or plan. He is endorsing no auditory or visual hallucinations or any specific delusions. He demonstrates no involuntary repetitive movements. He demonstrates no verbal or physical aggressiveness. He demonstrates no involuntary repetitive movements. He is oriented to person place and date. Plan: The patient will continue on his current psychotropic medications however we will reduce the Librium to 25 mg twice daily. The lithium has recently been increased we'll give this time to reach a new steady state and draw a lithium level. He is still reporting some irritability and racing thoughts that we'll hopefully respond to the lithium titration. We will discuss starting naltrexone to reduce cravings for alcohol use upon discharge. He requires continued psychiatric hospitalization.
[2019-10-04] MEDS: FOLIC ACID 1 MG TAB PO SCH (14:10)
[2019-10-04] MEDS: MELATONIN 5 MG TABLET PO SCH (21:07)
[2019-10-05] MEDS: busPIRone HCl 10 MG TAB PO SCH ×3 (08:44→21:21)
[2019-10-05] MEDS: NICOTINE 14MG/24HR PATCH TRANSDERM SCH (08:44)
[2019-10-05] MEDS: chlordiazePOXIDE 25 MG CAP PO SCH (08:45)
[2019-10-05] MEDS: THIAMINE 100 MG TAB PO SCH ×2 (08:45→21:21)
[2019-10-05] MEDS: LITHIUM CARBONATE 300 MG CAP PO SCH ×3 (08:45→21:21)
[2019-10-05] MEDS: GABAPENTIN 400 MG CAP PO SCH ×3 (08:45→21:21)
--- NOTE | 2019-10-05 10:15 | P.PN ---
Progress Note - Text Interval history: The patient is found in group he follows me to an interview room. He indicates his mood continues to improve. He is experiencing some sweating. He admits that he had been using Kratom on a regular basis for the last year and wonders if he is experiencing symptoms of withdrawal from that substance. We discussed his question in detail. We reviewed his current psychotropic medications. We will draw a lithium level tomorrow. He has been attending groups. He was able to sleep better last night appetite stable. Mental status exam: The patient is alert he is dressed in his own clothing hygiene grooming adequate. Eye contact is appropriate speech is fluent spontaneous nonpressured. He demonstrates no tangential thinking loose associations or flight of ideas. He feels that racing thoughts and irritability are improving. He reports no hopelessness thinking is reporting no acute suicidal ideation intent or plan no homicidal ideation intent or plan. He is reporting no auditory or visual hallucinations or any specific delusions. He demonstrates no verbal or physical aggressiveness he demonstrates no involuntary repetitive movements. Affect is constricted. He is demonstrating grossly intact cognitive abilities. Plan: The patient will continue on his current medication. We will obtain a lithium level tomorrow. I will reduce the Librium to once daily. Vital signs at good he remains medically stable. We will consider discharging him tomorrow if clinically stable.
[2019-10-05] MEDS: FOLIC ACID 1 MG TAB PO SCH (11:56)
[2019-10-05] MEDS: ACETAMINOPHEN TAB 325 MG TAB PO PRN (12:27)
[2019-10-05] MEDS: MAG HYDROX/AL HYDROX/SIMETH 30 ML CUP PO PRN (17:17)
[2019-10-05] MEDS: MELATONIN 5 MG TABLET PO SCH (21:21)
[2019-10-06 06:18] VITALS: BP 145/87; PULSE 92; RESP 14
[2019-10-06] MEDS: NICOTINE 14MG/24HR PATCH TRANSDERM SCH (07:59)
[2019-10-06] MEDS: GABAPENTIN 400 MG CAP PO SCH (08:00)
[2019-10-06] MEDS: THIAMINE 100 MG TAB PO SCH (08:00)
[2019-10-06] MEDS: LITHIUM CARBONATE 300 MG CAP PO SCH (08:00)
[2019-10-06] MEDS: busPIRone HCl 10 MG TAB PO SCH (08:00)
[2019-10-06] MEDS: FOLIC ACID 1 MG TAB PO SCH (08:00)
[2019-10-06 08:09] LABS: African American GFR (CKD) >90 (>60 ml/min/1.73 sqM); Blood Urea Nitrogen 10 mg/dL (9-20); Non-African American GFR(CKD) >90 (>60 ml/min/1.73 sqM)
[2019-10-06] MEDS ORDERED: chlordiazePOXIDE 25 MG CAP PO SCH (09:00)
[2019-10-06 09:22] LABS: Lithium 0.4 mmol/L
--- NOTE | 2019-10-06 09:29 | P.DS ---
Providers Date of admission: 09/30/19 00:45 Expected date of discharge: 10/06/19 Attending physician: Jay Robbins Consults: 09/30/19 01:29 Consult Physician Routine Consulting Provider: Favio Zapien Jr Consult Reason/Comments: medical H and P Do you want consulting provider notified?: Yes, Notify in am Primary care physician: Favio Zapien - Discharge Diagnosis(es) (1) Bipolar 1 disorder, depressed, severe Current Visit: Yes Status: Acute Priority: High (2) Alcohol use disorder, severe, dependence Current Visit: Yes Status: Acute Priority: High (3) Cannabis use disorder, mild, abuse Current Visit: Yes Status: Acute Priority: Low Hospital Course: Brief summary of admission note: This patient is a 38-year-old male who was admitted to the mental health unit for suicidal ideation. He presented to the hospital with suicidal ideation he was admitted to the mental health unit but unfortunately he was experiencing acute alcohol withdrawal and had to be transferred to the medical floor for stabilization. He required several days in the intensive care unit before being medically stabilized. He was transferred back to the mental health unit. The patient reported he felt overwhelmed by stressors related to the pandemic as well as his significant other moving out of state with his child. He had relapsed several weeks prior to this admission with alcohol. He does have a long history of alcohol use disorder. For full detail patient for to the psychiatric evaluation dated 09/30/2019. Summary of hospital course: The patient was admitted to the mental health unit voluntarily. We reviewed his presenting symptoms and treatment options. We decided that we would discontinue the Zyprexa was started as he reported symptoms of restless leg syndrome. We continued his lithium and decided to titrate the dose to 300 mg 3 times daily. The level was drawn this morning and we are awaiting the result. BuSpar was continued 10 mg 3 times daily he was continued on Neurontin 800 mg 3 times daily. The patient was continued on Librium on a scheduled basis but we have been tapering off of that medication during his mental health unit stay. He has done well with attending groups. He has reported a progressive improvement of symptoms while here. He demonstrated no agitated behavior. We discussed his alcohol use disorder it was recommended that he go to inpatient chemical dependency treatment but he declined that option. He is willing to utilize naltrexone. Mental status exam: The patient is alert he is dressed in his own clothing hygiene grooming are adequate. Eye contact is appropriate speech is fluent spontaneous nonpressured. He indicates his mood is much better he is reporting no hopelessness thinking or any suicidal ideation intent or plan. He reports no homicidal ideation intent or plan. He reports no auditory or visual ko llucinations or any specific delusions. There is no observed evidence of psychosis. He demonstrates no tangential thinking loose associations or flight of ideas there is no evidence of hypomania or lópez. He demonstrates no verbal or physical aggressiveness he demonstrates no involuntary repetitive movements. Insight and judgment grossly intact cognitively he is oriented to person place and date and is grossly intact. Affect is appropriately expressive. He demonstrates future oriented thinking. Impressions 1. Bipolar 1 disorder most recent depressed severe without psychosis, alcohol use disorder severe, cannabis use disorder mild, rule out opioid abuse disorder Plan: The patient will be discharged mental health unit today. He will return home. Social work will arrange his outpatient mental health follow-up. He will continue on lithium carbonate 300 mg 3 times daily, BuSpar 10 mg 3 times daily, Neurontin 800 mg 3 times daily, naltrexone 50 mg daily. He is instructed to abstain from any use of alcohol marijuana or illicit drugs as these can precipitate mood symptoms and elevate his safety risk. He declines the option of attending inpatient chemical dependency treatment. At this time there is no imminent safety risk is appropriate for transition to outpatient care. He is instructed to return to the hospital with any acute safety concerns. Patient Condition at Discharge: Stable Plan - Discharge Summary Discharge Rx Participant: No New Discharge Prescriptions: New busPIRone HCl [Buspar] 10 mg PO TID #45 tab [place] Carbonate 300 mg PO TID #45 cap Naltrexone HCl [Revia] 50 mg PO DAILY #30 tablet Continue Gabapentin 800 mg PO TID #45 tab Nicotine 14Mg/24Hr Patch [Habitrol] 1 patch TRANSDERM DAILY #14 patch Melatonin 5 mg PO HS #30 tablet Discontinued Folic Acid 1 mg PO W/LUNCH tab chlordiazePOXIDE HCl [Librium] 25 mg PO QID cap [place] Carbonate 300 mg PO BID cap Acetaminophen Tab [Tylenol] 650 mg PO Q4HR PRN tab PRN Reason: Fever And/ Or Pain Thiamine [Vitamin B-1] 100 mg PO DAILY #1 tab OLANZapine [ZyPREXA] 5 mg PO HS tab Famotidine [Pepcid] 20 mg PO BID #1 tablet Discharge Medication List Gabapentin 800 mg PO TID #45 tab 10/06/19 [Rx] [place] Carbonate 300 mg PO TID #45 cap 10/06/19 [Rx] Melatonin 5 mg PO HS #30 tablet 10/06/19 [Rx] Naltrexone HCl [Revia] 50 mg PO DAILY #30 tablet 10/06/19 [Rx] Nicotine 14Mg/24Hr Patch [Habitrol] 1 patch TRANSDERM DAILY #14 patch 10/06/19 [Rx] busPIRone HCl [Buspar] 10 mg PO TID #45 tab 10/06/19 [Rx] Activity/Diet/Wound Care/Special Instructions: Activity and diet as tolerated. Avoid the use of street drugs and alcohol. Take all medications as prescribed. When you are in need of refills on your medications please contact your medical provider and/or outpatient psychiatrist to have this done. Please go to scheduled outpatient appointment for aftercare treatment. If symptoms return or become worse, call the crisis line at and/or go to the nearest emergency room for evaluation.
[2019-10-06] MEDS: ACETAMINOPHEN TAB 325 MG TAB PO PRN (10:19)
[2019-10-06 12:40] VITALS: TEMP 97.3
== END 2019-10-06 13:35 | disposition home or self-care (01) | DRG 885 ==
LOC: 3MHU 09-30 00:45
PROVIDERS: ADMIT Psychiatry & Neurology Psychiatry; ATTEND Psychiatry & Neurology Psychiatry
DX: F31.4 Bipolar disorder, current episode depressed, severe, without psychotic features (principal); R45.851 Suicidal ideations; F10.230 Alcohol dependence with withdrawal, uncomplicated; I10 Essential (primary) hypertension; F17.200 Nicotine dependence, unspecified, uncomplicated; F41.9 Anxiety disorder, unspecified; G25.81 Restless legs syndrome; T43.595A Adverse effect of other antipsychotics and neuroleptics, initial encounter; F12.10 Cannabis abuse, uncomplicated; F11.90 Opioid use, unspecified, uncomplicated; Z79.899 Other long term (current) drug therapy; Z81.3 Family history of other psychoactive substance abuse and dependence; Z81.8 Family history of other mental and behavioral disorders
CPT/HCPCS: 80061; 80178; 82565; 83036; 84520